=== PATIENT | female | born 1950 | race Caucasian/White ===

== ENCOUNTER 2017-04-01 05:11 | Inpatient (IN) | payer OTHER, MEDICARE ==
[2017-04-01] MEDS ORDERED: GABAPENTIN 300 MG CAP PO ONE ×2 (06:29→06:58)
[2017-04-01] MEDS ORDERED: ceFAZolin 2 GM/SWFI 2 GM/20 ML SYR IVP ONE (06:29)
[2017-04-01] MEDS ORDERED: ACETAMINOPHEN 500 MG TAB PO ONE (06:29)
--- NOTE | 2017-04-01 06:31 | PDHPUP ---
History & Physical Update H&P update statement: This history and physical update is based on an assessment of the patient which was completed after admission or registration (within 24 hours), but prior to the surgery/procedure. H&P update: H&P reviewed & patient examined, no change in patient's condition since H&P completed
[2017-04-01] MEDS ORDERED: LR 1,000 ML IV ONE (06:48)
--- NOTE | 2017-04-01 07:09 | PDANEPAE ---
ANE History of Present Illness Patient presents for back fusion ANE Past Medical History - Cardiovascular History Hx Hypertension: Yes Hx Arrhythmias: Yes Hx Chest Pain: No Hx Coronary Artery / Peripheral Vascular Disease: No Hx CHF / Valvular Disease: No Hx Palpitations: No Cardiovascular History Comment: chronic a-Fib, - Pulmonary History Hx COPD: No Hx Asthma/Reactive Airway Disease: No Hx Recent Upper Respiratory Infection: No Hx Oxygen in Use at Home: No Hx Sleep Apnea: Yes Sleep Apnea Screening Result - Last Documented: Positive Pulmonary History Comment: asthma. Hx of sleep apnea - Neurologic History Hx Cerebrovascular Accident: No Hx Seizures: No Hx Dementia: No - Endocrine History Hx Diabetes: No - Renal History Hx Renal Disorders: No - Liver History Hx Hepatic Disorders: No - Neurological & Psychiatric Hx Hx Neurological and Psychiatric Disorders: Yes Neurological / Psychiatric History Comment: anxiety,depression - Cancer History Hx Cancer: No - Congenital Disorder History Hx Congenital Disorders: No - GI History Hx Gastrointestinal Disorders: Yes Gastrointestinal History Comment: Gerd. gall baldder disease w Sx - Other Health History Other Health History: osteo arthritis,. fibro-myalgia. 1995 spinal injury. chronic sinusitis - Chronic Pain History Chronic Pain: Yes (THORACIC SPINE,FIBROMYALGIA RELATED PAIN WELL) - Surgical History Prior Surgeries: CHANG shoulder replacement,. B knee,. B hammertoes ANE Review of Systems Review of Systems: - Exercise capacity METS (RN): 2 METS ANE Patient History - Allergies Allergies/Adverse Reactions: adhesive tape Allergy (Verified 03/18/17 14:30) erythromycin base Allergy (Verified 03/18/17 14:32) Vomiting Iodinated Contrast- Oral and IV Dye Allergy (Verified 03/18/17 15:57) Swelling/neck,face,throat propoxyphene [From Darvocet-N] Allergy (Verified 03/18/17 15:55) shellfish derived Allergy (Verified 03/18/17 14:32) Sulfa (Sulfonamide Antibiotics) Allergy (Verified 03/18/17 14:32) Hives vicryl Allergy (Uncoded 03/18/17 14:32) vitamin b12 Allergy (Uncoded 03/18/17 14:32) - Home Medications Home medications: home medication list seen and reviewed Home Medications: Acetaminophen [Tylenol ES 500 mg (*)] 1,000 mg PO Q6HRS PRN 03/18/17 [Last Taken 03/30/17 20:00] Acyclovir [Zovirax 400 mg (*)] 800 mg PO BID PRN 03/18/17 [Last Taken 3 Months Ago ~12/30/16] Albuterol [Proventil Inhaler HFA (*)] 2 puffs IH Q4H PRN 03/18/17 [Last Taken 1 Week Ago ~03/25/17] Albuterol [Proventil Neb] 3 ml IH QID PRN 03/18/17 [Last Taken 1 Week Ago ~03/25] Cholecalciferol Vit D3 [Vitamin D3 (*)] 4,000 units PO DAILY 03/18/17 [Last Taken 3 Months Ago ~12/30/16] DULoxetine [Cymbalta 60 MG (*)] 60 mg PO DAILY 03/18/17 [Last Taken 04/01/17 04: 00] Gabapentin [Neurontin 300 MG (*)] 300 mg PO DAILY 03/18/17 [Last Taken 04/01/17 04:00] Gabapentin [Neurontin 300 MG (*)] 600 mg PO HS 03/18/17 [Last Taken 03/31/17 20: 00] Herbals/Supplements -Info Only 1 ea PO DAILY 03/18/17 [Last Taken 1 Week Ago ~] Hydrocodone/Acetaminophen [[place] 7.5-325 Tablet] 1 each PO Q6HRS PRN 03/18/17 [ Last Taken 03/31/17 20:00] Losartan Potassium [Cozaar 50 mg (*)] 50 mg PO DAILY 03/18/17 [Last Taken 06:00] Montelukast Sodium [Singulair 10 mg (*)] 10 mg PO HS 03/18/17 [Last Taken 20:00] Pantoprazole Sodium [Protonix 40mg (*)] 40 mg PO BID 03/18/17 [Last Taken 04:00] Spironolactone [Aldactone 25 MG (*)] 50 mg PO DAILY 03/18/17 [Last Taken 08:00] busPIRone [Buspar (*)] 7.5 mg PO BID 03/18/17 [Last Taken 04/01/17 04:00] rOPINIRole HCL [Requip 2mg (*)] 4 mg PO TID 03/18/17 [Last Taken 04/01/17 04:00] Doxycycline Calcium BID 03/31/17 [Last Taken 04/01/17 04:00] Mupirocin 2% BID 03/31/17 [Last Taken 04/01/17 04:00] - NPO status NPO Status: no food or drink >8 hours NPO Since - Liquids (Date): 04/01/17 NPO Since - Liquids (Time): 04:00 NPO Since - Solids (Date): 03/31/17 NPO Since - Solids (Time): 23:30 - Anes Hx Anes Hx: slow to awaken from anesthesia - Smoking Hx Smoking Status: Never smoked - Family Anes Hx Family Hx Anesthesia Complications: none ANE Labs/Vital Signs - Vital Signs Blood Pressure: 129/69 Heart Rate: 79 Respiratory Rate: 15 O2 Sat (%): 96 Height: 160.02 cm Weight: 96.615 kg ANE Physical Exam - Airway Neck exam: FROM Mallampati Score: Class 2 - Pulmonary Pulmonary: no respiratory distress - Cardiovascular Cardiovascular: regular rate and rhythym - ASA Status ASA Status: III ANE Anesthesia Plan Anesthesia Plan: general endotracheal anesthesia Lines/Monitors: arterial line, central line (RBA discussed)
[2017-04-01] MEDS ORDERED: diphenhydrAMINE 25 MG CAP PO PRN (07:47)
[2017-04-01] MEDS ORDERED: MAGNESIUM HYDROXIDE 30 ML UDCUP PO PRN (07:47)
[2017-04-01] MEDS ORDERED: LACTULOSE 20 GM/30 ML UDCUP PO PRN (07:47)
[2017-04-01] MEDS ORDERED: BISACODYL 10 MG SUPP PR PRN (07:47)
[2017-04-01] MEDS ORDERED: TRANEXAMIC ACID 1,000 MG in NS 100 ML IV ONE ×2 (09:30→13:30)
[2017-04-01 09:59] LABS: % IMMATURE GRANULYOCYTES 0.3 % (0.0-1.1); ABSOLUTE IMMATURE GRANULOCYTES 0.02 10^3/uL (0.00-0.10); ADD DIFF? NO; ADD MORPH? NO; ADD SCAN? NO; ATYPICAL LYMPHOCYTE FLAG 20 (0-99); FRAGMENT RBC FLAG 0 (0-99); HEMATOCRIT 31.5 % (38.0-47.0); HEMOGLOBIN 10.1 g/dL (12.6-16.3); LEFT SHIFT FLG 0 (0-99); LIPEMIA HEMOLYSIS FLAG 80 (0-99); MEAN CELL HEMOGLOBIN 25.6 pg (27.9-34.1); MEAN CELL HEMOGLOBIN CONCENTR. 32.1 g/dL (32.4-36.7); MEAN CELL VOLUME 79.7 fL (81.5-99.8); MEAN PLATELET VOLUME 9.2 fL (8.7-11.7); PLATELET CLUMPS FLAG 20 (0-99); PLATELET COUNT 279 10^3/uL (150-400); RED BLOOD CELL COUNT 3.95 10^6/uL (4.18-5.33)
[2017-04-01 10:20] LABS: APTT 29.5 SEC (23.0-38.0); INR 1.17 (0.83-1.16); PROTIME(PATIENT) 14.9 SEC (12.0-15.0)
[2017-04-01] MEDS ORDERED: CITRATE DEXTROSE SOLN 500 ML BAG ONE ×2 (10:25→11:27)
[2017-04-01] MEDS ORDERED: THROMBIN (BOVINE) 20,000 UNIT VIAL TP ONE ×2 (10:26→11:56)
[2017-04-01] MEDS ORDERED: CHLORHEXIDINE GLUC HIBICLENS 118 ML BTL TP ONE (10:26)
[2017-04-01] MEDS ORDERED: BUPIVACAINE 0.25% 30 ML SDV ONE (10:26)
[2017-04-01] MEDS ORDERED: BACITRACIN 50,000 UNITS/10 ML SYR IRR ONE ×4 (10:27→14:27)
[2017-04-01] MEDS ORDERED: fentaNYL 100 MCG/2 ML INJ ONE (11:12)
[2017-04-01] MEDS ORDERED: fentaNYL 100 MCG/2 ML INJ IT ONE (11:15)
[2017-04-01] MEDS ORDERED: morphINE PF 1 MG/2 ML AMP IT ONE (11:15)
[2017-04-01 11:24] LABS: % IMMATURE GRANULYOCYTES 0.6 % (0.0-1.1); ABSOLUTE IMMATURE GRANULOCYTES 0.08 10^3/uL (0.00-0.10); ADD DIFF? NO; ADD MORPH? NO; ADD SCAN? NO; ATYPICAL LYMPHOCYTE FLAG 0 (0-99); FRAGMENT RBC FLAG 0 (0-99); HEMATOCRIT 30.4 % (38.0-47.0); HEMOGLOBIN 9.7 g/dL (12.6-16.3); LEFT SHIFT FLG 10 (0-99); LIPEMIA HEMOLYSIS FLAG 80 (0-99); MEAN CELL HEMOGLOBIN 25.5 pg (27.9-34.1); MEAN CELL HEMOGLOBIN CONCENTR. 31.9 g/dL (32.4-36.7); MEAN CELL VOLUME 79.8 fL (81.5-99.8); MEAN PLATELET VOLUME 9.4 fL (8.7-11.7); PLATELET CLUMPS FLAG 0 (0-99); PLATELET COUNT 270 10^3/uL (150-400); RED BLOOD CELL COUNT 3.81 10^6/uL (4.18-5.33); RED CELL DISTRIBUTION WIDTH 15.1 % (11.5-15.2)
[2017-04-01 11:35] LABS: INR 1.2 (0.83-1.16); PROTIME(PATIENT) 15.2 SEC (12.0-15.0)
[2017-04-01] MEDS ORDERED: ALBUTEROL 200 PUFFS/18 GM MDI IH PRN (11:40)
[2017-04-01] MEDS ORDERED: ALBUTEROL 3 ML DEYVIAL IH PRN (11:40)
[2017-04-01] MEDS ORDERED: ACYCLOVIR 400 MG TAB PO PRN (11:40)
[2017-04-01 13:32] LABS: % IMMATURE GRANULYOCYTES 0.9 % (0.0-1.1); ABSOLUTE IMMATURE GRANULOCYTES 0.13 10^3/uL (0.00-0.10); ABSOLUTE NRBC COUNT 0.02 10^3/uL (0-0.01); ADD DIFF? NO; ADD MORPH? NO; ADD SCAN? NO; ATYPICAL LYMPHOCYTE FLAG 0 (0-99); FRAGMENT RBC FLAG 0 (0-99); HEMATOCRIT 30.5 % (38.0-47.0); LEFT SHIFT FLG 30 (0-99); LIPEMIA HEMOLYSIS FLAG 80 (0-99); MEAN CELL HEMOGLOBIN 27.1 pg (27.9-34.1); MEAN CELL HEMOGLOBIN CONCENTR. 32.8 g/dL (32.4-36.7); MEAN CELL VOLUME 82.7 fL (81.5-99.8); MEAN PLATELET VOLUME 9.7 fL (8.7-11.7); NRBC-AUTO% 0.1 % (0.0-0.2); PLATELET CLUMPS FLAG 10 (0-99); PLATELET COUNT 179 10^3/uL (150-400); RED BLOOD CELL COUNT 3.69 10^6/uL (4.18-5.33)
[2017-04-01 13:40] LABS: APTT 30.3 SEC (23.0-38.0); INR 1.27 (0.83-1.16); PROTIME(PATIENT) 15.9 SEC (12.0-15.0)
[2017-04-01 14:58] LABS: ABSOLUTE IMMATURE GRANULOCYTES 0.12 10^3/uL (0.00-0.10); ADD DIFF? NO; ADD MORPH? NO; ADD SCAN? NO; ATYPICAL LYMPHOCYTE FLAG 0 (0-99); FRAGMENT RBC FLAG 10 (0-99); HEMATOCRIT 29.9 % (38.0-47.0); HEMOGLOBIN 9.9 g/dL (12.6-16.3); LEFT SHIFT FLG 30 (0-99); LIPEMIA HEMOLYSIS FLAG 80 (0-99); MEAN CELL HEMOGLOBIN 27.7 pg (27.9-34.1); MEAN CELL HEMOGLOBIN CONCENTR. 33.1 g/dL (32.4-36.7); MEAN CELL VOLUME 83.5 fL (81.5-99.8); MEAN PLATELET VOLUME 9.6 fL (8.7-11.7); PLATELET CLUMPS FLAG 0 (0-99); PLATELET COUNT 162 10^3/uL (150-400); RED BLOOD CELL COUNT 3.58 10^6/uL (4.18-5.33)
[2017-04-01 15:15] LABS: INR 1.27 (0.83-1.16); PROTIME(PATIENT) 15.9 SEC (12.0-15.0)
[2017-04-01 16:41] LABS: % IMMATURE GRANULYOCYTES 1.5 % (0.0-1.1); ABSOLUTE IMMATURE GRANULOCYTES 0.24 10^3/uL (0.00-0.10); ADD DIFF? NO; ADD MORPH? NO; ADD SCAN? NO; ATYPICAL LYMPHOCYTE FLAG 0 (0-99); FRAGMENT RBC FLAG 0 (0-99); HEMATOCRIT 33.1 % (38.0-47.0); HEMOGLOBIN 11.4 g/dL (12.6-16.3); LEFT SHIFT FLG 50 (0-99); LIPEMIA HEMOLYSIS FLAG 90 (0-99); MEAN CELL HEMOGLOBIN 28.9 pg (27.9-34.1); MEAN CELL HEMOGLOBIN CONCENTR. 34.4 g/dL (32.4-36.7); MEAN PLATELET VOLUME 9.6 fL (8.7-11.7); PLATELET CLUMPS FLAG 10 (0-99); PLATELET COUNT 103 10^3/uL (150-400); RED BLOOD CELL COUNT 3.94 10^6/uL (4.18-5.33); RED CELL DISTRIBUTION WIDTH 15.7 % (11.5-15.2)
[2017-04-01 17:15] LABS: INR 1.44 (0.83-1.16); PROTIME(PATIENT) 17.5 SEC (12.0-15.0)
[2017-04-01 17:16] LABS: APTT 34.4 SEC (23.0-38.0)
[2017-04-01] MEDS: GABAPENTIN 300 MG CAP PO SCH ×2 (17:27→20:40)
[2017-04-01] MEDS: POLYETHYLENE GLYCOL 3350 17 GM PKT PO SCH ×3 (17:27→20:41)
[2017-04-01] MEDS: FAMOTIDINE 20 MG TAB PO SCH ×2 (17:27→20:41)
[2017-04-01] MEDS: ACETAMINOPHEN 500 MG TAB PO SCH ×2 (17:27→20:37)
[2017-04-01] MEDS: SENNOSIDES/DOCUSATE SODIUM TAB PO SCH ×2 (17:27→20:41)
--- NOTE | 2017-04-01 17:58 | POSTOPPROG ---
Post Op Note Date of Operation: 04/01/17 Surgeon: Ngoc Villalobos Utility Sales And Service Manager: Ngoc Villalobos BURLESQUE DANCER Anesthesia: GET(General Endotracheal) Pre-op Diagnosis: Lumbar stenosis, scolisos Procedure: T10-S1 Fusions with TLIF at T12-1, L1-2, L3-4, L4-5 Inf/Abcess present in the surg proc area at time of surgery?: No Depth: Deep Incisional (Fascial) EBL: Greater than 1000 Total fluids administered: see anesthesia Complications: Durotomy Drains: Kennedy Langford Date of Surgery: 04/01/17 Post Op Day: 0 Assessment/Plan: Assessment: 66 yr old s/p T10-S1 Fusion with TLIF at T12-L1, L1-2, L3-4, L4-5, intraop durotomy Plan: -Patient will go to ICU -Pain management, patient received intrathecal narcotics which were administered in OR -PT/OT -Case management consulted -Wear brace when out of bed, patient has brace already -Keep head of bed flat until Wednesday 04/04 at 0800 -DO NOT place BAKARI to suction -CBC in am, 3400ml EBL intra-op, see anesthesia for products/fluids administered -Will give one unit Cryo now -Call neurosurgery with any questions/concerns Subjective: Patient waking up in ICU, extubated Objective: Waking up in ICU, extubated, following commands-still very sleepy Moves extremities x4 Dressing CDI BAKARI draining, not to suction Appropriate Neuro Check Frequency Ordered: Yes
--- NOTE | 2017-04-01 18:14 | POSTANESTH ---
Post Anesthetic Evaluation Cardiovascular Status: Similar to Pre-Op Cond Respiratory Status: Similar to Pre-op Cond. Level of Consciousness/Mental Status: Mildly Sleepy, Arousable Pain Control: Adequate, Prn Tx Ordered Nausea/Vomiting Control: Adequate, Prn Tx Ordered Complications Possibly Related to Anesthesia: None Noted
[2017-04-01] MEDS ORDERED: NALOXONE HCL 0.4 MG/ML INJ IVP PRN (20:30)
[2017-04-01] MEDS ORDERED: morphINE PCA 30 MG/30 ML PCA IV PRN (20:30)
[2017-04-01] MEDS: busPIRone 5 MG TAB PO SCH (20:35)
[2017-04-01] MEDS: CEFUROXIME 1,500 MG in NS 50 ML IV SCH (20:37)
[2017-04-01] MEDS: MONTELUKAST SODIUM 10 MG TAB PO SCH (20:41)
[2017-04-01] MEDS: PANTOPRAZOLE SODIUM 40 MG TAB PO SCH (20:41)
[2017-04-01] MEDS: MUPIROCIN 2% 22 GM OINT TP SCH (21:16)
[2017-04-02] MEDS: CEFUROXIME 1,500 MG in NS 50 ML IV SCH (03:13)
[2017-04-02 05:00] LABS: % IMMATURE GRANULYOCYTES 0.6 % (0.0-1.1); ABSOLUTE IMMATURE GRANULOCYTES 0.08 10^3/uL (0.00-0.10); ADD DIFF? NO; ADD MORPH? NO; ADD SCAN? NO; ATYPICAL LYMPHOCYTE FLAG 0 (0-99); FRAGMENT RBC FLAG 0 (0-99); HEMATOCRIT 30.8 % (38.0-47.0); LEFT SHIFT FLG 20 (0-99); LIPEMIA HEMOLYSIS FLAG 80 (0-99); MEAN CELL HEMOGLOBIN 27.8 pg (27.9-34.1); MEAN CELL HEMOGLOBIN CONCENTR. 32.5 g/dL (32.4-36.7); MEAN CELL VOLUME 85.6 fL (81.5-99.8); MEAN PLATELET VOLUME 10.7 fL (8.7-11.7); PLATELET CLUMPS FLAG 10 (0-99); PLATELET COUNT 64 10^3/uL (150-400); RED CELL DISTRIBUTION WIDTH 15.9 % (11.5-15.2)
[2017-04-02 05:03] LABS: ANION GAP 9 mEq/L (8-16); CALCIUM 6.5 mg/dL (8.5-10.4); CARBON DIOXIDE 18 mEq/l (22-31); CHLORIDE 115 mEq/L (97-110); CREATININE 0.6 mg/dL (0.6-1.0); GLOMERULAR FILTRATION RATE > 60; GLUCOSE 139 mg/dL (70-100); POTASSIUM 4.7 mEq/L (3.5-5.2); SODIUM 142 mEq/L (134-144)
[2017-04-02] MEDS: ACETAMINOPHEN 500 MG TAB PO SCH ×3 (06:40→20:32)
[2017-04-02] MEDS: GABAPENTIN 300 MG CAP PO SCH ×4 (06:40→21:15)
[2017-04-02] MEDS: oxyCODONE IR 5 MG TAB PO PRN ×4 (06:41→23:27)
[2017-04-02] MEDS: METHOCARBAMOL 750 MG TAB PO PRN (07:52)
--- NOTE | 2017-04-02 07:52 | NEUSURGPN ---
Assessment/Plan: 66 yr old s/p T10-S1 Fusion with TLIF at T12-L1, L1-2, L3-4, L4-5, intraop durotomy POD1 Plan: -Continue ICU level of care -Pain management, patient received intrathecal narcotics which were administered in OR. Started on HEALTH ASSOCIATE over night. Will wean today -PT/OT -Case management consulted -Wear brace when out of bed, patient has brace already -Keep head of bed flat until Wednesday 04/04 at 0800 -DO NOT place BAKARI to suction -H:H 10:30.8 - Will added in Valium for muscle relaxers -Call neurosurgery with any questions/concerns Subjective: low back pain and stiffness. Denies any new leg pain, numbness, tingling or weakness Objective: NAD A&Ox3 MAEx4 09/24 and equal in BUE and BLE. Incision c/d/i Catheter Insertion Date: 04/01/17 - Physician Discussed Patient with : Torres Neurosurgery Physical Exam - Vitals, I&O, Labs I and O 04/01/17 04/02/17 04/03/17 05:59 05:59 05:59 Intake Total 342 Output Total 935 Balance -593 Weight 96.615 kg 96.615 kg Intake: IV Intake (ml) 342 Output: Urine (ml) 875 Catheter 875 BAKARI Drain Output (ml) 60 Back 60 Vital Signs Temp Pulse Resp BP Pulse Ox 36.3 C 95 18 122/70 H 99 04/01/17 20:00 04/02/17 06:00 04/02/17 06:00 04/02/17 06:00 04/02/17 06:00 Laboratory Results 04/02/17 04:40 04/02/17 04:40 ICD10 Worksheet Patient Problems: Problems Problem Status Onset Lumbar stenosis Acute - ICD10 Problem Qualifiers (1) Lumbar stenosis
--- NOTE | 2017-04-02 09:58 | ASMTCASEMG ---
Living Arrangements What is your living Answers: With Spouse arrangement? Who do you live with? Type Of Residence What kind of residence do Answers: House you live in? Discharge Plan Comments Coordination Status Comments Notes: Pt is a 66 y/o female admitted w/ hip and groin pain. Pt is post op day 1. PT, OT, SPL have been ordered and awaiting recommendations. Needs are TBD at this time. CM to follow. Date Signed: 04/02/2017 09:58 AM Electronically Signed By:HEMA Hernandez
[2017-04-02] MEDS: DULoxetine 60 MG CAP PO SCH (10:29)
[2017-04-02] MEDS: SENNOSIDES/DOCUSATE SODIUM TAB PO SCH ×2 (10:29→21:35)
[2017-04-02] MEDS: LOSARTAN POTASSIUM 50 MG TAB PO SCH (10:29)
[2017-04-02] MEDS: SPIRONOLACTONE 25 MG TAB PO SCH (10:31)
[2017-04-02] MEDS: FAMOTIDINE 20 MG TAB PO SCH ×2 (10:32→20:31)
[2017-04-02] MEDS: busPIRone 5 MG TAB PO SCH ×2 (10:32→20:31)
[2017-04-02] MEDS: PANTOPRAZOLE SODIUM 40 MG TAB PO SCH ×2 (10:32→20:31)
[2017-04-02] MEDS: CHOLECALCIFEROL VIT D3 1,000 UNITS TAB PO SCH (10:33)
[2017-04-02] MEDS: MUPIROCIN 2% 22 GM OINT TP SCH ×2 (11:08→21:14)
[2017-04-02] MEDS: POLYETHYLENE GLYCOL 3350 17 GM PKT PO SCH ×3 (11:09→21:35)
[2017-04-02] MEDS: MONTELUKAST SODIUM 10 MG TAB PO SCH (20:32)
[2017-04-02] MEDS ORDERED: CEPACOL LOZENGE PO PRN (21:00)
[2017-04-02] MEDS: DIAZEPAM 5 MG TAB PO PRN (21:35)
[2017-04-03] MEDS: ONDANSETRON 4 MG/2 ML VIAL IVP PRN ×2 (00:30→20:34)
[2017-04-03] MEDS: oxyCODONE IR 5 MG TAB PO PRN ×4 (04:32→20:37)
[2017-04-03] MEDS: GABAPENTIN 300 MG CAP PO SCH ×3 (04:32→20:35)
[2017-04-03] MEDS: ACETAMINOPHEN 500 MG TAB PO SCH ×3 (04:33→20:36)
[2017-04-03] MEDS: DIAZEPAM 5 MG TAB PO PRN ×3 (06:01→18:29)
--- NOTE | 2017-04-03 08:30 | NEUSURGPN ---
Assessment/Plan: 66 yr old s/p T10-S1 Fusion with TLIF at T12-L1, L1-2, L3-4, L4-5, intraop durotomy POD2 Plan: -Continue ICU level of care -Pain management, improved with addition of valium -PT/OT -Case management consulted -Wear brace when out of bed, patient has brace already -Okay to raise HOB 10 degrees and hour today -DO NOT place BAKARI to suction -Will recheck CBC today -Call neurosurgery with any questions/concerns Subjective: low back pain, denies any leg pain, numbness, tingling or weakness Objective: NAD A&Ox3 MAEx4 5/5 and equal in BUE and BLE. Incision c/d/i, flat Catheter Insertion Date: 04/01/17 - Physician Discussed Patient with : Torres Neurosurgery Physical Exam - Vitals, I&O, Labs I and O 04/02/17 04/03/17 04/04/17 05:59 05:59 05:59 Intake Total 342 1550 Output Total 935 1350 Balance -593 200 Weight 96.615 kg Intake: Oral (ml) 300 IV Intake (ml) 342 1250 Output: Urine (ml) 875 1250 Catheter 875 1250 BAKARI Drain Output (ml) 60 100 Back 60 100 Vital Signs Temp Pulse Resp BP Pulse Ox 36.6 C 85 12 108/52 L 98 04/02/17 20:00 04/03/17 06:00 04/03/17 06:00 04/03/17 06:00 04/03/17 06:00 Laboratory Results 04/02/17 04:40 04/02/17 04:40 ICD10 Worksheet Patient Problems: Problems Problem Status Onset Lumbar stenosis Acute - ICD10 Problem Qualifiers (1) Lumbar stenosis
[2017-04-03 09:15] LABS: HEMOGLOBIN 8.3 g/dL (12.6-16.3); MEAN CELL HEMOGLOBIN 28.2 pg (27.9-34.1); MEAN CELL HEMOGLOBIN CONCENTR. 33.2 g/dL (32.4-36.7); RED BLOOD CELL COUNT 2.94 10^6/uL (4.18-5.33); RED CELL DISTRIBUTION WIDTH 16.5 % (11.5-15.2)
[2017-04-03] MEDS: SENNOSIDES/DOCUSATE SODIUM TAB PO SCH ×2 (09:37→20:35)
[2017-04-03] MEDS: PANTOPRAZOLE SODIUM 40 MG TAB PO SCH ×2 (09:38→20:36)
[2017-04-03] MEDS: FAMOTIDINE 20 MG TAB PO SCH ×2 (09:38→20:34)
[2017-04-03] MEDS: busPIRone 5 MG TAB PO SCH ×2 (09:38→20:34)
[2017-04-03] MEDS: DULoxetine 60 MG CAP PO SCH (09:38)
[2017-04-03] MEDS: MUPIROCIN 2% 22 GM OINT TP SCH ×2 (09:40→23:30)
[2017-04-03] MEDS: CHOLECALCIFEROL VIT D3 1,000 UNITS TAB PO SCH (09:40)
[2017-04-03] MEDS: SPIRONOLACTONE 25 MG TAB PO SCH ×2 (09:41→15:13)
[2017-04-03] MEDS: POLYETHYLENE GLYCOL 3350 17 GM PKT PO SCH ×3 (09:41→20:36)
--- NOTE | 2017-04-03 15:10 | PDINTPN ---
Business Planning Analyst Progress Note Assessment/Plan: Assessment: S/P T10-S1 Fusion with durotomy: Off of bed rest/lying flat as of this morning. C/O severe post-op pain. Asthma: Mild, no symptoms currently CAM: ? severity. Not on treatment. Anemia: H/H down a bit today. Plan: Increase activity as tolerated as per NS. PO narcotics/Valium for pain. Albuterol PRN. Observe for signs of CAM. Follow H/H. 04/03/17 15:01 04/03/17 15:11 Subjective: C/O pain at surgical site, thirst. Denies dyspnea, CP, cough. Objective: Vital Signs Temp Pulse Resp BP Pulse Ox 37 C 94 13 125/72 H 95 04/03/17 12:00 04/03/17 12:00 04/03/17 12:00 04/03/17 12:00 04/03/17 12:00 Laboratory Results 04/03/17 08:50 04/02/17 04:40 04/02/17 04/03/17 04/04/17 05:59 05:59 05:59 Intake Total 342 1550 Output Total 935 1350 Balance -593 200 PT 17.5 SEC (12.0-15.0) H 04/01/17 16:25 INR 1.44 (0.83-1.16) H 04/01/17 16:25 Physical Exam - Physical Exam General Appearance: alert, moderate distress (due to pain) EENT: normal ENT inspection Neck: normal inspection Respiratory: lungs clear, normal breath sounds, No respiratory distress Cardiac/Chest: regular rate, rhythm, No edema Abdomen: non-tender, soft, No normal bowel sounds (diminished) Skin: normal color, warm/dry Extremities: normal inspection Neuro/Psych: alert, normal mood/affect, oriented x 3 ICD10 Worksheet Patient Problems: Problems Problem Status Onset Lumbar stenosis Acute
[2017-04-03] MEDS: LOSARTAN POTASSIUM 50 MG TAB PO SCH (15:12)
--- NOTE | 2017-04-03 15:32 | GCON ---
[f rep st] CONSULTATION PULMONARY/CRITICAL CARE CONSULTATION DATE OF CONSULTATION: 04/02/2017 REFERRING PHYSICIAN: Dragan Macdonald MD REASON FOR CONSULTATION: Evaluation and management of asthma, sleep apnea, and pain status post lumb ar surgery. HISTORY: The patient is a 66-year-old woman with a history of chronic low back pain who has failed c onservative treatment and underwent a T10 to S1 fusion with TLIF at T11 through L5. There was intrao perative durotomy. Since surgery yesterday, she has had significant back pain and has to lie flat. She states that the pain is centered around the surgical site and is quite severe. She is a bit grog gy from pain medications and Valium. She denies nausea. PAST MEDICAL HISTORY: 1. Asthma. She states that this is fairly mild and is managed primarily with p.r.n. albuterol as we ll as montelukast. 2. Sleep apnea. The patient states that this was diagnosed about 3 years ago based on a sleep study . She has not been on treatment and is a bit vague as to whether or not treatment was recommended or the severity of the sleep apnea. 3. Hypertension. MEDICATIONS: Include ropinirole, spironolactone, pantoprazole, montelukast, losartan, gabapentin, du loxetine, buspirone, albuterol, acyclovir, [place], and doxycycline. ALLERGIES: Adhesive tape and erythromycin. SOCIAL HISTORY: She is , and her is in the room. She has never smoked. FAMILY HISTORY: Unremarkable. REVIEW OF SYSTEMS: A 10-point review of systems adds nothing to the History of Present Illness. PHYSICAL EXAMINATION: GENERAL: The patient is awake, alert, and in mild distress due to pain. PASQUALE L SIGNS: Her blood pressure is 117/53 with a heart rate of 100. Her oxygen saturations are 97% on 3 L. Respiratory rate is 17. She is afebrile. HEENT: Normocephalic and atraumatic. No icterus. N TERRI: No adenopathy. Trachea is midline. CHEST: Clear to auscultation. CARDIAC: Regular rate and rhythm without murmur. ABDOMEN: Soft, nontender. Bowel sounds are present. EXTREMITIES: No club yadira, cyanosis, or edema. NEURO: The patient is awake but somewhat somnolent due to narcotics/sedat french. She has no apparent gross focal motor or sensory deficits. LABORATORY: Hemoglobin is 10.0, stable from 10.1 on the morning of admission. White blood count is 13.6. Chemistry group is remarkable for a carbon dioxide level of 18 with chloride of 115. INR is 1 .4. ASSESSMENT: 1. Status post lumbar spine surgery. The patient is having significant pain, which is partially con trolled with narcotics and Valium. She has a durotomy tear and has to lie flat for at least the next 24 hours. 2. Asthma. This is apparently mild, and the patient is not currently having symptoms of an asthma e xacerbation. 3. Sleep apnea. The severity of this is unknown, and she is not on treatment at home. She is, wyman meggan, at risk for complications related from sleep apnea combined with respiratory depressants such as pain medications and benzodiazepines used here in the hospital. 4. Anemia. This was present at the time of admission, and her hemoglobin is essentially unchanged s georgi surgery. RECOMMENDATIONS: 1. Continue ICU monitoring for a history of sleep apnea with pain medications/sedatives. 2. Use albuterol p.r.n. asthma. 3. Pain control as per Neurosurgery. /[id number]/MODL
[2017-04-03] MEDS: METHOCARBAMOL 750 MG TAB PO PRN ×2 (17:53→23:30)
[2017-04-03] MEDS: MONTELUKAST SODIUM 10 MG TAB PO SCH (20:35)
[2017-04-04] MEDS: DIAZEPAM 5 MG TAB PO PRN ×2 (00:22→20:52)
[2017-04-04] MEDS: ONDANSETRON DISINTEGRATING 4 MG TAB PO PRN ×2 (00:22→09:10)
[2017-04-04] MEDS: oxyCODONE IR 5 MG TAB PO PRN ×6 (02:25→23:06)
[2017-04-04 05:33] LABS: HEMATOCRIT 22.4 % (38.0-47.0); HEMOGLOBIN 7.5 g/dL (12.6-16.3); MEAN CELL HEMOGLOBIN 28.3 pg (27.9-34.1); MEAN CELL HEMOGLOBIN CONCENTR. 33.5 g/dL (32.4-36.7); MEAN CELL VOLUME 84.5 fL (81.5-99.8); RED BLOOD CELL COUNT 2.65 10^6/uL (4.18-5.33); RED CELL DISTRIBUTION WIDTH 16.5 % (11.5-15.2)
[2017-04-04] MEDS: ACETAMINOPHEN 500 MG TAB PO SCH ×3 (05:48→20:46)
[2017-04-04] MEDS: METHOCARBAMOL 750 MG TAB PO PRN ×3 (05:49→14:48)
[2017-04-04 05:56] LABS: ANION GAP 5 mEq/L (8-16); CALCIUM 7.9 mg/dL (8.5-10.4); CARBON DIOXIDE 32 mEq/l (22-31); CHLORIDE 99 mEq/L (97-110); CREATININE 0.5 mg/dL (0.6-1.0); GLOMERULAR FILTRATION RATE > 60; GLUCOSE 120 mg/dL (70-100); SODIUM 136 mEq/L (134-144)
--- NOTE | 2017-04-04 07:18 | NEUSURGPN ---
Date of Surgery: 04/01/17 Post Op Day: 3 Assessment/Plan: Assessment: 66 yr old s/p T10-S1 Fusion with TLIF at T12-L1, L1-2, L3-4, L4-5, intraop durotomy Plan: -PT/OT -Case management to eval dispo options when able -Wear brace when out of bed -Intraop durotomy, patient had hob flat until yesterday, tolerating hob elevated and ambulation, denies headache -DO NOT place BAKARI to suction -PIV x2 infiltrated, unable to obtain access per RN. Will get PICC placed this am. -H/H 22.4/7.5, will transfuse 2 units PRBC's once PICC placed -May transfer to floor -Call neurosurgery with any questions/concerns Subjective: Legs do not feel as heavy this am Objective: A&Ox3 MAEx4 5/ and equal in BUE and BLE Incision c/d/i, Neuro Check Frequency: per routine Urinary Catheter in Place: No Catheter Insertion Date: 04/01/17 - Physician Discussed Patient with : Torres Neurosurgery Physical Exam - Vitals, I&O, Labs I and O 04/03/17 04/04/17 04/05/17 05:59 05:59 05:59 Intake Total 1550 350 Output Total 1350 1315 Balance 200 -965 Intake: Oral (ml) 300 350 IV Intake (ml) 1250 Output: Urine (ml) 1250 1100 Catheter 1250 1100 BAKARI Drain Output (ml) 100 215 Back 100 215 Other: Number of Voids Toilet 1 Vital Signs Temp Pulse Resp BP Pulse Ox 36.8 C 89 20 123/63 H 95 04/04/17 04:00 04/04/17 06:00 04/04/17 06:00 04/04/17 06:00 04/04/17 06:00 Laboratory Results 04/04/17 05:25 04/04/17 05:25 ICD10 Worksheet Patient Problems: Problems Problem Status Onset Lumbar stenosis Acute
[2017-04-04] MEDS ORDERED: ALTEPLASE 2 MG VIAL IVP PRN (07:49)
[2017-04-04] MEDS: LOSARTAN POTASSIUM 50 MG TAB PO SCH (09:20)
[2017-04-04] MEDS: DULoxetine 60 MG CAP PO SCH (09:27)
[2017-04-04] MEDS: CHOLECALCIFEROL VIT D3 1,000 UNITS TAB PO SCH (09:27)
[2017-04-04] MEDS: GABAPENTIN 300 MG CAP PO SCH ×2 (09:27→20:10)
[2017-04-04] MEDS: SPIRONOLACTONE 25 MG TAB PO SCH (09:27)
[2017-04-04] MEDS: busPIRone 5 MG TAB PO SCH ×2 (09:28→20:46)
[2017-04-04] MEDS: SENNOSIDES/DOCUSATE SODIUM TAB PO SCH ×2 (09:29→20:13)
[2017-04-04] MEDS: PANTOPRAZOLE SODIUM 40 MG TAB PO SCH ×2 (09:29→20:12)
[2017-04-04] MEDS: POLYETHYLENE GLYCOL 3350 17 GM PKT PO SCH ×3 (09:37→20:13)
--- NOTE | 2017-04-04 09:37 | PDINTPN ---
Regulatory Affairs Assistant Progress Note Assessment/Plan: Assessment: * S/P T10-S1 Fusion with durotomy: Off of bed rest/lying flat as of this morning. C/O severe post-op pain. * Asthma: Mild, no symptoms currently * CAM: ? severity. Not on treatment. * Anemia: H/H down a bit today. 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 Objective: Vital Signs Temp Pulse Resp BP Pulse Ox 36.8 C 89 20 123/63 H 95 04/04/17 04:00 04/04/17 06:00 04/04/17 06:00 04/04/17 06:00 04/04/17 06:00 Laboratory Results 04/04/17 05:25 04/04/17 05:25 04/03/17 04/04/17 04/05/17 05:59 05:59 05:59 Intake Total 1550 350 Output Total 1350 1315 Balance 200 -965 PT 17.5 SEC (12.0-15.0) H 04/01/17 16:25 INR 1.44 (0.83-1.16) H 04/01/17 16:25 Physical Exam - Physical Exam General Appearance: alert, no apparent distress EENT: PERRL/EOMI Neck: non-tender Respiratory: chest non-tender, lungs clear, normal breath sounds Cardiac/Chest: normal peripheral pulses, regular rate, rhythm Abdomen: normal bowel sounds, non-tender, soft Pelvic Exam: deferred Rectal: deferred Skin: normal color, warm/dry ICD10 Worksheet Patient Problems: Problems Problem Status Onset Lumbar stenosis Acute
[2017-04-04] MEDS: ENOXAPARIN 40 MG/0.4 ML SYR SC SCH (11:10)
[2017-04-04] MEDS: MUPIROCIN 2% 22 GM OINT TP SCH ×2 (11:12→20:11)
--- NOTE | 2017-04-04 11:50 | GOP ---
[f rep st] OPERATIVE REPORT DATE OF OPERATION: 04/01/2017 SURGEON: Dragan Macdonald MD NEUROSURGEON: Dragan Macdonald MD ENVIRONMENTAL ENGINEERING ASSISTANT: Ngoc Villalobos NP. PREOPERATIVE DIAGNOSIS: Severe lumbar degenerative scoliosis with critical spinal stenosis and later al recess impingement and intractable back pain, failed conservative care. POSTOPERATIVE DIAGNOSIS: Severe lumbar degenerative scoliosis with critical spinal stenosis and late ral recess impingement and intractable back pain, failed conservative care. PROCEDURE PERFORMED: 1. T10 through sacral multilevel decompression and instrumentation (pedicle screw and axle device), fixation, and posterolateral fusion with local autograft and bone morphogenic protein. 2. Right-sided T12-L1 and L1-2 and left-sided L2-3 and L4-5 far lateral transpedicular decompression s with T12-L1, L1-2, L2-3, and L4-5 posterior/transforaminal lumbar interbody fusion with structural PEEK interbody spacers, local autograft, and bone morphogenic protein. 3. Use of intraoperative microscopy, fluoroscopy, and computer volumetric stereotactic navigation wi th intraoperative neurophysiologic testing. 4. Injection of intrathecal narcotic analgesics. 5. Identification and repair of spinal leak requiring extension of the laminectomy. FINDINGS: ESTIMATED BLOOD LOSS: 3400 cc. INDICATIONS: The patient is a 66-year-old woman with intractable low back pain and bilateral lower e xtremity radicular discomfort secondary to severe multilevel lumbar degenerative scoliosis with criti dorcas spinal stenosis and lateral recess impingement. She has failed extensive conservative care and p resents now for a multilevel surgical decompression and stabilization. DESCRIPTION OF PROCEDURE: After informed consent was obtained, the patient was taken to the operatin g room and placed in the prone position on the Kennedy table. The thoracolumbosacral areas were prep ped and draped in sterile fashion. After fluoroscopic localization of the correct levels, the subcut aneous and intramuscular tissues were infiltrated with local anesthesia. A midline linear incision w as then created from approximately T10 through the sacrum. This was carried down the fascial layer, which was then incised using monopolar electrocautery and carried in a subperiosteal plane along the spinous processes and lamina bilaterally. Intraoperative fluoroscopy was again utilized to verify th e correct levels. Following this, dissection was carried out laterally over the facet joints. After again re-verify the correct levels, the right-sided T12-L1 and L1-2 far lateral transpedicular decom pressions were performed with complete unroofing of the facet joints and neural foramen. The same wa s done at L4-5 on the left. The L2-3 level also had some significant spinal stenosis that was encoun tered upon doing the L1-2 level and upon re-evaluating the MRI intraoperatively, I felt that it was i n the best interest of the patient to also decompress this level, more from the left side, which was performed. There was an extensive amount of scarred down tissue, and there was a small durotomy due to some bone sticking into the dura that, when removed, there was no dura left. I put a single 4-0 N urolon suture in that after extending laminectomy for better exposure. Following this, the ecoVentnavigational system was brought in and using computer volumetric stereotactic navigation, pedicle screws were placed from T10 through S1. Note that the patient's body habitus (morbidly obese) made the exposure extremely difficult as well as placement of the screws. This was in combination of the severe scoliosis, angulation of her spine, and smaller pedicle screws on the concave side. All this made this very difficult and much more time consuming than normal, and she lost an extensive amount o f blood, both due to her body habitus and the degree of difficulty. Eventually, I was able to place screws in all the levels, and serial distraction was created across each interspace that was decompre ssed. Complete diskectomies were performed as best I could at the T12-L1, L1-2, L2-3, and L4-5 level s. The endplates were prepared and an appropriately sized structural PEEK interbody spacer packed wi th local autograft and demineralized bone matrix were placed in the interspaces for T12-L1, L1-2, L2- 3, and L4-5 posterior/transforaminal lumbar interbody fusions. The small rods were then removed, and longer rods from T10-S1 were placed. Note that the strong screws in the entire construct were at S1 , and I felt that it was not in the best interest of the patient to place iliac screws. Given this, instead, I would reinforce the lowest most and highest most levels of the axle devices in order to ho pefully prevent hardware failure, screw pullout, and junctional kyphosis. After the TLIFs were compl eted and the rods were placed with maximal amount of lordosis in order to prevent flat back syndrome, the locking caps were engaged and axial devices were placed at T10, T11, and at L5-S1. The remainin g lamina and facet joints were then extensively decorticated and the residual local autograft along w ith bone morphogenic protein and morselized allograft was placed out laterally for the posterolateral fusion from T10 through S1. A drain was then placed. The subcutaneous and intramuscular tissues we re re-infiltrated with local anesthesia. Duramorph 200 mcg along with 50 mcg of fentanyl were inject ed intrathecally for postoperative pain control. The wound was closed in a layered fashion using int errupted Vicryl sutures followed by Steri-Strips on the skin. COMPLICATIONS: None. DISPOSITION: The patient was extubated and transferred to the recovery room in stable condition. /[id number]/MODL
--- NOTE | 2017-04-04 13:54 | ASMTCMCOM ---
CM Note CM Note Notes: OT recommending HC with 24hr supervision. PT has not written recommendations as yet. Patient to transfer to the floor. Date Signed: 04/04/2017 01:54 PM Electronically Signed By:Kayleen Zhong LCSW
[2017-04-04] MEDS: MONTELUKAST SODIUM 10 MG TAB PO SCH (20:11)
[2017-04-05] MEDS: oxyCODONE IR 5 MG TAB PO PRN ×4 (05:04→20:37)
[2017-04-05] MEDS: ACETAMINOPHEN 500 MG TAB PO SCH ×3 (05:04→20:33)
[2017-04-05] MEDS: DIAZEPAM 5 MG TAB PO PRN ×3 (05:09→21:37)
[2017-04-05 05:37] LABS: HEMATOCRIT 27.7 % (38.0-47.0); HEMOGLOBIN 9.4 g/dL (12.6-16.3); MEAN CELL HEMOGLOBIN 28.4 pg (27.9-34.1); MEAN CELL HEMOGLOBIN CONCENTR. 33.9 g/dL (32.4-36.7); MEAN CELL VOLUME 83.7 fL (81.5-99.8); RED BLOOD CELL COUNT 3.31 10^6/uL (4.18-5.33); RED CELL DISTRIBUTION WIDTH 16.3 % (11.5-15.2)
[2017-04-05 06:19] LABS: ALANINE AMINOTRANSFERASE 55 IU/L (9-52); ALBUMIN 2.5 g/dL (3.5-5.0); ALKALINE PHOSPHATASE 56 IU/L (38-126); ANION GAP 6 mEq/L (8-16); ASPARTATE AMINOTRANSFERASE 38 IU/L (14-46); BILIRUBIN,TOTAL 1.1 mg/dL (0.1-1.4); CALCIUM 7.7 mg/dL (8.5-10.4); CARBON DIOXIDE 30 mEq/l (22-31); CHLORIDE 98 mEq/L (97-110); CREATININE 0.5 mg/dL (0.6-1.0); GLOMERULAR FILTRATION RATE > 60; GLUCOSE 103 mg/dL (70-100); POTASSIUM 3.9 mEq/L (3.5-5.2); SODIUM 134 mEq/L (134-144); TOTAL PROTEIN 4.4 g/dL (6.3-8.2)
--- NOTE | 2017-04-05 08:15 | NEUSURGPN ---
Date of Surgery: 04/01/17 Post Op Day: 4 Assessment/Plan: Assessment: 66 yr old s/p T10-S1 Fusion with TLIF at T12-L1, L1-2, L3-4, L4-5, intraop durotomy Plan: -PT/OT -Pain management, valium is making patient too sleepy-will try Robaxin in place today -Case management to eval dispo options when able -Wear brace when out of bed -Will DC BAKARI today -PICC placed yesterday and 2 units PRBCs infused, h/h this am 9.4/27.7 -Post op xrays pending, will try to get today -Dr Lenz will see patient later today, I discussed patient with Dr Lenz -Call neurosurgery with any questions/concerns Subjective: Patient having incisional pain Objective: AxO x3 PERRLA EOMI 5/ BUE, BLE Dressing CDI Neuro Check Frequency: per routine Urinary Catheter in Place: No Catheter Insertion Date: 04/01/17 - Physician Discussed Patient with : [facility] Neurosurgery Physical Exam - Vitals, I&O, Labs I and O 04/04/17 04/05/17 04/06/17 05:59 05:59 05:59 Intake Total 350 1050 Output Total 1315 1215 Balance -965 -165 Intake: Oral (ml) 350 350 Packed Red Blood Cells ( 700 ml) Output: Urine (ml) 1100 1175 Bedside Commode 1175 Catheter 1100 BAKARI Drain Output (ml) 215 40 Back 215 40 Other: Number of Voids Bedside Commode 1 Toilet 1 Vital Signs Temp Pulse Resp BP Pulse Ox 36.5 C 98 16 129/77 H 88 L 04/05/17 07:37 04/05/17 07:37 04/05/17 07:37 04/05/17 07:37 04/05/17 07:37 Laboratory Results 04/05/17 05:20 04/05/17 05:20 ICD10 Worksheet Patient Problems: Problems Problem Status Onset Lumbar stenosis Acute
[2017-04-05] MEDS: GABAPENTIN 300 MG CAP PO SCH ×2 (08:21→20:33)
[2017-04-05] MEDS: CHOLECALCIFEROL VIT D3 1,000 UNITS TAB PO SCH (08:23)
[2017-04-05] MEDS: SPIRONOLACTONE 25 MG TAB PO SCH (08:23)
[2017-04-05] MEDS: busPIRone 5 MG TAB PO SCH ×2 (08:24→20:33)
[2017-04-05] MEDS: PANTOPRAZOLE SODIUM 40 MG TAB PO SCH ×2 (08:25→20:35)
[2017-04-05] MEDS: LOSARTAN POTASSIUM 50 MG TAB PO SCH (08:25)
[2017-04-05] MEDS: DULoxetine 60 MG CAP PO SCH (08:25)
[2017-04-05] MEDS: SENNOSIDES/DOCUSATE SODIUM TAB PO SCH ×2 (08:25→20:35)
[2017-04-05] MEDS: POLYETHYLENE GLYCOL 3350 17 GM PKT PO SCH ×3 (08:26→20:35)
[2017-04-05] MEDS: ENOXAPARIN 40 MG/0.4 ML SYR SC SCH (08:26)
[2017-04-05] MEDS: MUPIROCIN 2% 22 GM OINT TP SCH ×2 (10:32→20:34)
[2017-04-05] MEDS: METHOCARBAMOL 750 MG TAB PO PRN (10:35)
--- NOTE | 2017-04-05 12:43 | ASMTCMCOM ---
CM Note CM Note Notes: PT rec SNF, spoke w pt and dghtr Shanna who are in agreement. [facility] accepts pt. Non-triggering PASRR in Allscripts. D/c plan of care: [facility] when medically stable. Date Signed: 04/05/2017 12:42 PM Electronically Signed By:JUNIE Sterling
[2017-04-05] MEDS: MONTELUKAST SODIUM 10 MG TAB PO SCH (20:34)
[2017-04-06] MEDS: oxyCODONE IR 5 MG TAB PO PRN ×5 (00:13→21:52)
[2017-04-06] MEDS: ACETAMINOPHEN 500 MG TAB PO SCH ×3 (05:05→21:47)
[2017-04-06] MEDS: METHOCARBAMOL 750 MG TAB PO PRN ×2 (05:11→14:48)
[2017-04-06] MEDS: CHOLECALCIFEROL VIT D3 1,000 UNITS TAB PO SCH (07:51)
[2017-04-06] MEDS: SPIRONOLACTONE 25 MG TAB PO SCH (07:52)
[2017-04-06] MEDS: busPIRone 5 MG TAB PO SCH ×2 (07:53→21:45)
[2017-04-06] MEDS: LOSARTAN POTASSIUM 50 MG TAB PO SCH (07:54)
[2017-04-06] MEDS: ENOXAPARIN 40 MG/0.4 ML SYR SC SCH (07:55)
[2017-04-06] MEDS: DULoxetine 60 MG CAP PO SCH (07:55)
[2017-04-06] MEDS: PANTOPRAZOLE SODIUM 40 MG TAB PO SCH ×2 (07:55→21:45)
[2017-04-06] MEDS: GABAPENTIN 300 MG CAP PO SCH ×2 (07:55→21:45)
[2017-04-06] MEDS: SENNOSIDES/DOCUSATE SODIUM TAB PO SCH ×2 (07:57→21:54)
[2017-04-06] MEDS: DIAZEPAM 5 MG TAB PO PRN ×3 (08:08→21:52)
[2017-04-06] MEDS: MUPIROCIN 2% 22 GM OINT TP SCH ×2 (08:14→21:57)
--- NOTE | 2017-04-06 08:15 | NEUSURGPN ---
Date of Surgery: 04/01/17 Post Op Day: 5 Assessment/Plan: Assessment: 66 yr old s/p T10-S1 Fusion with TLIF at T12-L1, L1-2, L3-4, L4-5, intraop durotomy POD#5 Plan: -PT/OT -Pain management, patient tolerating current regimen -Case management to eval dispo options when able, patient and daughter set to speak with [facility] today -Dc pending therapies recommendations -Wear brace when out of bed -Post op xrays stable hardware placement, reviewed with patient and daughter -Dr Lenz will see patient later today, I discussed patient with Dr Lenz -Call neurosurgery with any questions/concerns Subjective: Patient feeling better today, not as groggy Objective: AxO x3 PERRLA EOMI 5/ BUE, BLE Patient ambulating in room with walker Dressing CDI Neuro Check Frequency: per routine Urinary Catheter in Place: No Catheter Insertion Date: 04/01/17 - Physician Discussed Patient with : Torres Neurosurgery Physical Exam - Vitals, I&O, Labs I and O 04/05/17 04/06/17 04/07/17 05:59 05:59 05:59 Intake Total 1050 300 Output Total 1215 100 Balance -165 200 Intake: Oral (ml) 350 300 Packed Red Blood Cells ( 700 ml) Output: Urine (ml) 1175 100 Bedside Commode 1175 Toilet 100 BAKARI Drain Output (ml) 40 Back 40 Other: Intake Quantity Yes Sufficient Number of Voids Bedside Commode 1 Toilet 1 Number of Stools Toilet 1 Vital Signs Temp Pulse Resp BP Pulse Ox 36.4 C 81 16 108/57 L 97 04/06/17 07:36 04/06/17 07:36 04/06/17 07:36 04/06/17 07:36 04/06/17 07:36 Laboratory Results 04/05/17 05:20 04/05/17 05:20 ICD10 Worksheet Patient Problems: Problems Problem Status Onset Lumbar stenosis Acute
[2017-04-06] MEDS: POLYETHYLENE GLYCOL 3350 17 GM PKT PO SCH ×3 (11:53→21:54)
[2017-04-06] MEDS: traMADol 50 MG TAB PO PRN (12:33)
[2017-04-06] MEDS: MONTELUKAST SODIUM 10 MG TAB PO SCH (21:45)
[2017-04-07] MEDS: METHOCARBAMOL 750 MG TAB PO PRN ×2 (03:04→11:02)
[2017-04-07] MEDS: oxyCODONE IR 5 MG TAB PO PRN (03:04)
[2017-04-07] MEDS: ACETAMINOPHEN 500 MG TAB PO SCH (05:56)
[2017-04-07 07:45] VITALS: PULSE 85; RESP 16; TEMP 97.6; O2SAT 100
--- NOTE | 2017-04-07 08:17 | NEUSURGPN ---
Date of Surgery: 04/01/17 Post Op Day: 6 Assessment/Plan: Assessment: 66 yr old s/p T10-S1 Fusion with TLIF at T12-L1, L1-2, L3-4, L4-5, intraop durotomy POD#6 Plan: -PT/OT -Pain management, patient tolerating current PO regimen -DC to [facility] today -Wear brace when out of bed -Post op xrays stable hardware placement, reviewed with patient and daughter -I discussed patient with Dr Lenz -[facility] neurosurgery with any questions/concerns Subjective: Patient right sided pain gone today, expected incisional pain Objective: AxO x3 PERRLA EOMI 5/ BUE, BLE Patient ambulating in room with walker Dressing CDI Neuro Check Frequency: per routine Urinary Catheter in Place: No Catheter Insertion Date: 04/01/17 - Physician Discussed Patient with : Torres Neurosurgery Physical Exam - Vitals, I&O, Labs I and O 04/06/17 04/07/17 04/08/17 05:59 05:59 05:59 Intake Total 300 300 Output Total 100 750 Balance 200 -450 Intake: Oral (ml) 300 300 Output: Urine (ml) 100 750 Toilet 100 750 Other: Intake Quantity Yes Yes Sufficient Number of Voids Toilet 1 1 1 Number of Stools Toilet 1 1 Vital Signs Temp Pulse Resp BP Pulse Ox 36.4 C 85 16 138/70 H 100 04/07/17 07:45 04/07/17 07:45 04/07/17 07:45 04/07/17 07:45 04/07/17 07:45 Laboratory Results 04/05/17 05:20 04/05/17 05:20 ICD10 Worksheet Patient Problems: Problems Problem Status Onset Lumbar stenosis Acute
--- NOTE | 2017-04-07 08:25 | PDIAF ---
- Diagnosis Code Status: Full Code - Medication Management Discharge Medications: Medications to Continue on Transfer Acetaminophen [Tylenol ES 500 mg (*)] 1,000 mg PO Q6HRS PRN 03/18/17 [Last Taken 03/30/17 20:00] Acyclovir [Zovirax 400 mg (*)] 800 mg PO BID PRN 03/18/17 [Last Taken 3 Months Ago ~12/30/16] Albuterol [Proventil Inhaler HFA (*)] 2 puffs IH Q4H PRN 03/18/17 [Last Taken 1 Week Ago ~03/25/17] Albuterol [Proventil Neb] 3 ml IH QID PRN 03/18/17 [Last Taken 1 Week Ago ~03/25] Cholecalciferol Vit D3 [Vitamin D3 (*)] 4,000 units PO DAILY 03/18/17 [Last Taken 3 Months Ago ~12/30/16] DULoxetine [Cymbalta 60 MG (*)] 60 mg PO DAILY 03/18/17 [Last Taken 04/01/17 04: 00] Gabapentin [Neurontin 300 MG (*)] 300 mg PO DAILY 03/18/17 [Last Taken 04/01/17 04:00] Gabapentin [Neurontin 300 MG (*)] 600 mg PO HS 03/18/17 [Last Taken 03/31/17 20: 00] Herbals/Supplements -Info Only 1 ea PO DAILY 03/18/17 [Last Taken 1 Week Ago ~] Losartan Potassium [Cozaar 50 mg (*)] 50 mg PO DAILY 03/18/17 [Last Taken 06:00] Montelukast Sodium [Singulair 10 mg (*)] 10 mg PO HS 03/18/17 [Last Taken 20:00] Pantoprazole Sodium [Protonix 40mg (*)] 40 mg PO BID 03/18/17 [Last Taken 04:00] Spironolactone [Aldactone 25 MG (*)] 50 mg PO DAILY 03/18/17 [Last Taken 08:00] busPIRone [Buspar (*)] 7.5 mg PO BID 03/18/17 [Last Taken 04/01/17 04:00] rOPINIRole HCL [Requip 2mg (*)] 4 mg PO TID 03/18/17 [Last Taken 04/01/17 04:00] Doxycycline Hyclate [Vibramycin 100 MG (*)] 100 mg PO BID 03/31/17 [Last Taken 04/01/17 04:00] Mupirocin 2% [Bactroban 2% Nasal] 1 zhen TP BID 03/31/17 [Last Taken 04/01/17 04: 00] Acetaminophen [Tylenol ES 500 mg (*)] 1,000 mg PO Q8HRS tab 04/07/17 [Last Taken Unknown] Diazepam [Valium 5 MG (*)] 5 mg PO BID PRN 15 Days #30 tab 04/07/17 [Last Taken Unknown] Methocarbamol [Robaxin 750 mg (*)] 750 mg PO QID PRN 30 Days #120 tab 04/07/17 [ Last Taken Unknown] Polyethylene Glycol 3350 [Miralax 17 gm (*)] 17 gm PO TID #14 pkt 04/07/17 [ Last Taken Unknown] Sennosides/Docusate Sodium [Senokot-S] 1 - 2 tab PO BID tab 04/07/17 [Last Taken Unknown] oxyCODONE IR [Oxycodone Ir (*)] 5 - 10 mg PO Q4HRS PRN #90 tab 04/07/17 [Last Taken Unknown] traMADol [Ultram 50 mg (*)] 50 mg PO Q6HRS PRN #90 tab 04/07/17 [Last Taken Unknown] Discharge Medications: Refer to the Discharge Home Medication list for PRN reason. - Orders Services needed: Registered Nurse, Certified Business Objects Analyst, Physical Therapy, Occupational Therapy Isolation Type: Contact Isolation Diet Recommendation: no restrictions on diet Diet Texture: Regular Texture Diet Gary Stockings Discontinue Date: September dc Gary hose when walking 100yds 3-4 times per day Wound Care Instructions: No dressing needed. Ok to shower Sutures/[place] Site: [place] Activity/Weight Bearing Restrictions: No lifting greater than 10 pounds. No bending or twisting Equipment: Wear brace when out of bed - Follow Up Care Current Providers and Referrals: MAXIMINO DUARTE [Primary Care Provider] - Dragan Macdonald MD [Medical Doctor] - follow up in 2 weeks
[2017-04-07] MEDS: busPIRone 5 MG TAB PO SCH (08:57)
[2017-04-07] MEDS: traMADol 50 MG TAB PO PRN (08:58)
[2017-04-07] MEDS: SPIRONOLACTONE 25 MG TAB PO SCH (08:59)
[2017-04-07] MEDS: DULoxetine 60 MG CAP PO SCH (09:00)
[2017-04-07] MEDS: LOSARTAN POTASSIUM 50 MG TAB PO SCH (09:00)
[2017-04-07] MEDS: PANTOPRAZOLE SODIUM 40 MG TAB PO SCH (09:00)
[2017-04-07] MEDS: ENOXAPARIN 40 MG/0.4 ML SYR SC SCH (09:01)
[2017-04-07] MEDS: CHOLECALCIFEROL VIT D3 1,000 UNITS TAB PO SCH (09:01)
[2017-04-07] MEDS: GABAPENTIN 300 MG CAP PO SCH (09:01)
[2017-04-07 09:08] VITALS: BP 143/91
[2017-04-07] MEDS: SENNOSIDES/DOCUSATE SODIUM TAB PO SCH (09:08)
[2017-04-07] MEDS: POLYETHYLENE GLYCOL 3350 17 GM PKT PO SCH (09:08)
[2017-04-07] MEDS: MUPIROCIN 2% 22 GM OINT TP SCH (09:15)
--- NOTE | 2017-04-07 12:11 | ASDISCHSUM ---
Discharge Information Plan Status:SNF Medically Cleared to Leave: Discharge Date:04/07/2017 11:57 AM CM D/C Disposition:Senior Living Facility ADT D/C Disposition:Senior Living Facility Projected Discharge Date:04/06/2017 11:00 AM Transportation at D/C:Wheelchair Van Discharge Delay Reason: Follow-Up Date:04/06/2017 11:00 AM Discharge Slot: Final Diagnosis: Placement Information Referral Type:*Detention/SNF Referral ID:[id number] Provider Name:[facility] Address 1:[address] [place] [address] Address 2: City:[place] Selection Factors: State:[place] Patient Contact Information Contact Name:JEREMYTOMASALESLEY Relationship: Address:[address] [place] [address] Work Phone: City:[place] Alternate Phone: State/Zip Code:[place] [address] Email: Financial Information Financial Class: Primary Plan Desc:MEDICARE INPATIENT Primary Plan Number:[id number] Secondary Plan Desc:AARP/MDR SUPPLEMENT Secondary Plan Number:[id number] Assessment Information [facility] Initial CM Assessment Living Arrangements What is your living Answers: With Spouse arrangement? Who do you live with? Type Of Residence What kind of residence do Answers: House you live in? Discharge Plan Comments Coordination Status Comments Notes: Pt is a 66 y/o female admitted w/ hip and groin pain. Pt is post op day 1. PT, OT, SPL have been ordered and awaiting recommendations. Needs are TBD at this time. CM to follow. Date Signed: 04/02/2017 09:58 AM Electronically Signed By:HEMA Hernandez [facility] CM Progress Note CM Note CM Note Notes: OT recommending HC with 24hr supervision. PT has not written recommendations as yet. Patient to transfer to the floor. Date Signed: 04/04/2017 01:54 PM Electronically Signed By:Kayleen Zhong LCSW [facility] CM Progress Note CM Note CM Note Notes: PT rec SNF, spoke w pt and dghtr Shanna who are in agreement. [facility] [place] accepts pt. Non-triggering PASRR in Allscripts. D/c plan [facility] care: [facility] when medically stable. Date Signed: 04/05/2017 12:42 PM Electronically Signed By:JUNIE Sterling Case Management Discharge Plan Note Case Management Discharge Discharge Order Complete? Answers: Yes Patient to Obtain Answers: Other Notes: SNF Medications Transportation Arranged Answers: Other Notes: [facility] [place] set up wc Transport will Pick (Date 04/07/2017 11:30 AM & Time) EMTALA Complete Answers: No Case Management Transport Answers: No Form Complete Faxed Final Orders Answers: No Notes: All scripts Agency/Facility Transfer Answers: Yes Report Printed & Faxed to Receiving Agency Family Notified Answers: Yes Discharge Comments Notes: RN called report. Date Signed: 04/07/2017 12:10 PM Electronically Signed By:JUNIE Sterling Intervention Information
--- NOTE | 2017-05-09 20:05 | GDS ---
[f rep st] DISCHARGE SUMMARY PRIMARY DIAGNOSIS: Lumbar stenosis and scoliosis. OPERATIONS AND PROCEDURES: Operation performed on 04/01/2017: T10 to S1 fusion with translumbar int erbody fusion at T12-L1, L1-L2, L3-L4, L4-L5. HOSPITAL COURSE: The patient was admitted on 04/01/2017 to undergo a T10 to S1 fusion with translumb ar interbody fusion at T12-L1, L1-L2, L3-L4, and L4-L5. Patient tolerated the procedure well, was ta awilda to the PACU following surgery and admitted to the floor for her postoperative recovery. Patient was treated and evaluated by Physical Therapy and Occupational Therapy during her stay and ultimately was able to control her postoperative pain with a p.o. regimen. Postoperative x-rays were performed and demonstrated stable hardware placement without evidence of complication. [facility]. CONSULTS: Thermoforming Operator, Dr. Rush, for respiratory issues, including the management of asthma and sle ep apnea post surgery. COMPLICATIONS: None. DISCHARGE CONDITION: Good. Patient was discharged to [facility]07[facility], following a T10 to S1 fusion with translumbar interbody fusion at T12-L1, L1-L2, L3-L4, and L4-L5 with an intraoperative d urotomy on postop day 6. DISCHARGE INSTRUCTIONS: Patient will be discharged to [facility]. Will continue physical therapy and occupational therapy. Currently, her pain is being well managed with p.o. regimen. She is instruct ed to avoid any bending or lifting greater than 10 pounds or twisting. She is to wear her brace at a ll times when out of bed. She is scheduled to follow up in the office with Dr. Dragan Macdonald in 2 weeks upon discharge. She is to call our office with any further questions or concerns prior to h er postoperative visit. /[id number]/MODL
== END 2017-04-07 11:57 | DRG 454 ==
LOC: F3N 05:11 → F2N 10:00 → F3N 04-04 15:58
PROVIDERS: ADMIT Neurological Surgery; ATTEND Neurological Surgery
PROC: 30233L1 Transfusion of Nonautologous Fresh Plasma into Peripheral Vein, Percutaneous Approach (ICD-10-PCS; 2017-04-01)
PROC: 30233N1 Transfusion of Nonautologous Red Blood Cells into Peripheral Vein, Percutaneous Approach (ICD-10-PCS; 2017-04-01)
PROC: 4A1004G Monitoring of Central Nervous Electrical Activity, Intraoperative, Open Approach (ICD-10-PCS; principal; 2017-04-01 07:15)
PROC: 8E0WXBZ Computer Assisted Procedure of Trunk Region (ICD-10-PCS; principal; 2017-04-01 07:15)
PROC: 0SG1071 Fusion of 2 or more Lumbar Vertebral Joints with Autologous Tissue Substitute, Posterior Approach, Posterior Column, Open Approach (ICD-10-PCS; principal; 2017-04-01 07:15)
PROC: 0ST20ZZ Resection of Lumbar Vertebral Disc, Open Approach (ICD-10-PCS; principal; 2017-04-01 07:15)
PROC: 00QT0ZZ Repair Spinal Meninges, Open Approach (ICD-10-PCS; principal; 2017-04-01 07:15)
PROC: 0RGA071 Fusion of Thoracolumbar Vertebral Joint with Autologous Tissue Substitute, Posterior Approach, Posterior Column, Open Approach (ICD-10-PCS; principal; 2017-04-01 07:15)
PROC: 0SG3071 Fusion of Lumbosacral Joint with Autologous Tissue Substitute, Posterior Approach, Posterior Column, Open Approach (ICD-10-PCS; principal; 2017-04-01 07:15)
PROC: 0RTB0ZZ Resection of Thoracolumbar Vertebral Disc, Open Approach (ICD-10-PCS; principal; 2017-04-01 07:15)
PROC: 00NY0ZZ Release Lumbar Spinal Cord, Open Approach (ICD-10-PCS; principal; 2017-04-01 07:15)
PROC: 0RGA0AJ Fusion of Thoracolumbar Vertebral Joint with Interbody Fusion Device, Posterior Approach, Anterior Column, Open Approach (ICD-10-PCS; principal; 2017-04-01 07:15)
PROC: 0SG10AJ Fusion of 2 or more Lumbar Vertebral Joints with Interbody Fusion Device, Posterior Approach, Anterior Column, Open Approach (ICD-10-PCS; principal; 2017-04-01 07:15)
PROC: 02H633Z Insertion of Infusion Device into Right Atrium, Percutaneous Approach (ICD-10-PCS; 2017-04-04)
DX: M41.56 Other secondary scoliosis, lumbar region (principal); G96.11 Dural tear; M48.061 Spinal stenosis, lumbar region without neurogenic claudication; J45.909 Unspecified asthma, uncomplicated; G47.30 Sleep apnea, unspecified; D64.9 Anemia, unspecified; E66.09 Other obesity due to excess calories; I10 Essential (primary) hypertension; I48.2 Chronic atrial fibrillation
CPT/HCPCS: 97116-GP; 97161-GP; 97166-GO; 97530-GO; 97530-GP; 97535-GO; C1713; C1751; C1762; G8978-GP-CK; G8980-GP-CJ; G8987-GO-CK; G8988-GO-CI; J0171; J0690; J0697; J1650; J2270; J2274; J2405; J3010; J7060; P9012; P9016; P9017

== ENCOUNTER 2017-04-22 12:33 | Inpatient (IN) | payer OTHER, MEDICARE ==
[2017-04-22] MEDS ORDERED: ACETAMINOPHEN 325 MG TAB PO PRN (13:03)
[2017-04-22] MEDS ORDERED: ONDANSETRON DISINTEGRATING 4 MG TAB PO PRN (13:03)
[2017-04-22] MEDS ORDERED: ONDANSETRON 4 MG/2 ML VIAL IVP PRN (13:03)
[2017-04-22] MEDS ORDERED: ALBUTEROL 3 ML DEYVIAL IH PRN (16:53)
[2017-04-22] MEDS ORDERED: POLYETHYLENE GLYCOL 3350 17 GM PKT PO PRN (16:53)
[2017-04-22] MEDS: traMADol 50 MG TAB PO PRN (17:26)
[2017-04-22] MEDS: METHOCARBAMOL 750 MG TAB PO PRN (17:27)
[2017-04-22] MEDS ORDERED: NON-FORMULARY NEW DRUG (Simethicone [Gas-X] 125 MG) PO SCH (17:30)
--- NOTE | 2017-04-22 18:46 | GHP ---
[f rep st] HISTORY AND PHYSICAL DATE OF ADMISSION: 04/22/2017 CHIEF COMPLAINT: Right-sided flank and low back pain. 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 She u nderwent a T10 to S1 fusion with Dr. Macdonald on 04/01/17 for severe lumbar scoliosis, degenerat law disk disease, and stenosis. After her hospitalization, the patient was transferred to [facility] rehab, where she currently was residing up to today. Yesterday, the patient was seen in clinic for a postoperative appointment for a wound check and was reporting right-sided flank pain that was spasmo dic in nature. She was not having any leg pain or bowel or bladder changes. She did have some gener alized lower extremity weakness, which was being addressed at [facility] rehab. She does walk with th e assistance of a walker and is wearing an LSO brace. At yesterday's appointment, we reviewed x-rays of the patient's thoracolumbar spine, which demonstrated evidence of protrusion of the right T10 scr ew into the T9-10 disk space. Those images were from 04/12/17, and today the patient underwent repea t x-rays of the thoracolumbar spine, demonstrating interval increase of the protrusion of the screws into the disk space. The patient was reporting ongoing lower right-sided back pain just over her vianey ac crest, and there was a concern that she may have a kidney stone. She was evaluated in [facility] emergency department today and underwent a CT scan of the abdomen, which was negative f or kidney stones. It was decided, given the patient's ongoing pain and the evidence of progression o f the screws into the disk space, that the patient should be admitted to the hospital for further becky luation and treatment and revision surgery. ALLERGIES: Contrast dye, shellfish, sulfa, penicillins, iodine, and mycin. REVIEW OF SYSTEMS: Back pain, generalized lower extremity weakness. Otherwise negative than what is mentioned in the HPI. PHYSICAL EXAMINATION: GENERAL: Pleasant, tired-appearing 66-year-old female in no apparent distress . HEAD, EYES, EARS, NOSE, THROAT: Within normal limits. EXTREMITIES: Within normal limits. BACK: Her lumbar incision is healing and has some areas of scabbing that have been treated with antibioti c ointment and are under close observation. There is no evidence of drainage or redness. NEUROLOGIC : The patient is awake, alert, and oriented x4. Cranial nerves 2-12 are intact to gross examination . Speech is fluent. Tongue is midline. Spinal accessory muscles are intact. She has equal strengt h in bilateral upper extremities. She has some trembling when she stands on her own secondary to gen eralized leg weakness but has 5/5 strength in all muscle groups when individually tested in the lower extremities. Sensation is grossly intact to light touch in the upper and lower extremities. PAST MEDICAL HISTORY: 1. MRSA from cultures dated July 2016. 2. Asthma. 3. Sleep apnea. 4. Hypertension. SOCIAL HISTORY: She is and lives with her . She has a very supportive daughter. She has never smoked. FAMILY HISTORY: Unremarkable. DATA REVIEWED: AP and lateral x-rays of the thoracolumbar spine dated 04/12/17, from [facility], demonstrate T10 to S1 fusion with no evidence of hardware fracture or failure; however, th e right T10 screw appears to protrude into the T9-10 disk space. AP and lateral thoracolumbar x-rays dated 04/22/17 were reviewed, also from [facility], and demonstrate evidence of progre ssion of the T10 screws projecting into the T9-10 disk space. There is no evidence of fracture or margaret ny collapse or severe kyphosis above the fusion. IMPRESSION: This is a 66-year-old female, who is approximately 3 weeks out from a T10 to S1 fusion. Her preoperative pain has significantly improved, and she remains neurologically stable, with genera lized weakness of her lower extremities, which was currently being addressed at [facility] rehab, anna e she was progressing well. The patient was found to have evidence of the right T10 screw in the T9- 10 disk space, as well as right-sided lower back and flank pain that may or may not be related to the T10 screws. The patient did undergo an extensive workup today at [facility] emergency department, which was negative for kidney stone, and it was felt that the patient's pain was muscula r in nature. Regardless, the patient needs to undergo surgical revision to address the malpositioned screws. PLAN: Above issues were discussed with the patient in detail with her daughter and , as well as with Dr. Macdonald today. At this time, the patient will be admitted to the hospital. Hospit alist consult has been obtained, and they have seen the patient and will assist in her medical manage ment during her hospitalization. The patient will be fitted with a [place] brace, which she will wear whenever she is out of bed. She is tentatively scheduled for surgery on Tuesday at 4 p.m. at [facility]; however, this is subject to change. /[id number]/MODL
--- NOTE | 2017-04-22 19:52 | GCON ---
[f rep st] CONSULTATION CONSULTING PHYSICIAN: Dr. Macdonald. CONSULTING QUESTION: Medical management. HISTORY OF PRESENT ILLNESS: A 66-year-old female with a history of a recent hospitalization in 2016. She underwent T10-S1 fusion on 04/01/2017. Patient was discharged to a long-term care facility, re-presented the day of evaluation with complaints of worsening back pain. It is felt that the patient's hardware is in malposition. Patient is being admitted for surgical intervention. On the medical floor, patient reports her persistent back pain. Denies any palpitations, chest pain, shortness of breath. Reports tolerating normal oral intake without complication. Had previous cons tipation but is now passing stools without difficulty. Denies any difficulty passing urine or hematu nighat. Lower extremities are without any numbness or tingling. Denies any subjective fevers, chills, or meagan hes. PAST MEDICAL HISTORY: For this patient: 1. Hypertension. 2. Obesity. 3. Scoliosis. 4. Depression. 5. Restless legs syndrome. 6. Gastroesophageal reflux disease. SOCIAL HISTORY: Negative for tobacco, alcohol or illicit drugs. Patient has recently been in a long -term care facility for postoperative recovery. FAMILY HISTORY: Positive for hypertension. REVIEW OF SYSTEMS: A 10-point review of systems is negative with the exception of that reported in t he HPI. PHYSICAL EXAMINATION: VITAL SIGNS: Blood pressure 138/70, heart rate 85, respiratory rate 16, 94% o n room air, 37.0. GENERAL: This is a pleasant appearing middle-aged female, lying flat in bed. HEEN T: Notable for moist mucous membranes. Eye exam is negative for any icterus. CARDIAC: Patient is re gular rate and rhythm. PULMONARY: Good respiratory effort. Clear to auscultation bilaterally. GASTRO INTESTINAL: Positive bowel sounds. ABDOMEN: Obese and soft, nontender in all 4 quadrants. MUSCULOS KELETAL: Negative for any lower extremity edema. SKIN: Negative for any rashes. NEUROLOGIC: She is alert and oriented x3. PSYCHIATRIC: She is pleasant and cooperative on interview and examination. DATA: Lumbar spine from 04/05/2017, shows a well-seated posterior fusion at that time. Outside imag es are not available for my viewing currently. Laboratory: White count on 04/05 is 10.6, creatinine 0.5. ASSESSMENT AND PLAN: This is a 66-year-old female presenting with malpositioned hardware for surgica l repair. 1. Hypertension. Will continue patient's home medications. Patient is currently normotensive. Susp ect this will continue with her outpatient regimen. 2. Pain related to her fusion and misaligned hardware. Will continue the patient's Robaxin p.r.n., diazepam. Patient reports she has not needed her Neurontin recently so we will hold these. Any ricardo tional pain medications per Neurosurgery. 3. Gastroesophageal reflux disease. Will continue her twice daily Protonix. 4. Restless legs. The patient uses Requip which we will continue in the inpatient setting. 5. Prophylaxis with Lovenox. DIET: Regular. DISPOSITION: I expect greater than 2 midnights as the patient has required neurosurgical evaluation and a return trip to the operating room to address what is being described as malpositioned hardware. I have discussed the case with Neurosurgery. Thank you for the consultation. Will follow along with you. /[id number]/MODL
[2017-04-22] MEDS: SIMETHICONE 80 MG TAB CHEW PO SCH ×2 (20:07→21:00)
[2017-04-22] MEDS: PANTOPRAZOLE SODIUM 40 MG TAB PO SCH (20:26)
[2017-04-22] MEDS: MONTELUKAST SODIUM 10 MG TAB PO SCH (20:26)
[2017-04-22] MEDS: SENNOSIDES/DOCUSATE SODIUM TAB PO SCH (20:26)
[2017-04-22] MEDS: MUPIROCIN 2% 22 GM OINT TP SCH (20:28)
[2017-04-22] MEDS: DIAZEPAM 5 MG TAB PO PRN (20:57)
[2017-04-22] MEDS: busPIRone 5 MG TAB PO SCH (20:59)
[2017-04-22] MEDS ORDERED: MUPIROCIN 2% TP SCH (21:00)
[2017-04-22 21:24] LABS: % IMMATURE GRANULYOCYTES 0.3 % (0.0-1.1); ABSOLUTE IMMATURE GRANULOCYTES 0.03 10^3/uL (0.00-0.10); ADD DIFF? NO; ADD MORPH? NO; ADD SCAN? NO; ATYPICAL LYMPHOCYTE FLAG 10 (0-99); FRAGMENT RBC FLAG 0 (0-99); HEMATOCRIT 38.5 % (38.0-47.0); HEMOGLOBIN 12.5 g/dL (12.6-16.3); LEFT SHIFT FLG 0 (0-99); LIPEMIA HEMOLYSIS FLAG 80 (0-99); MEAN CELL HEMOGLOBIN 27.8 pg (27.9-34.1); MEAN CELL HEMOGLOBIN CONCENTR. 32.5 g/dL (32.4-36.7); MEAN CELL VOLUME 85.6 fL (81.5-99.8); MEAN PLATELET VOLUME 9.2 fL (8.7-11.7); PLATELET CLUMPS FLAG 10 (0-99); PLATELET COUNT 263 10^3/uL (150-400); RED CELL DISTRIBUTION WIDTH 15.5 % (11.5-15.2)
[2017-04-22 22:02] LABS: ANION GAP 11 mEq/L (8-16); CALCIUM 9.2 mg/dL (8.5-10.4); CARBON DIOXIDE 24 mEq/l (22-31); CHLORIDE 102 mEq/L (97-110); CREATININE 0.7 mg/dL (0.6-1.0); GLOMERULAR FILTRATION RATE > 60; GLUCOSE 105 mg/dL (70-100); POTASSIUM 4.2 mEq/L (3.5-5.2); SODIUM 137 mEq/L (134-144)
[2017-04-22] MEDS: HYDROCODONE/APAP 5/325 TAB PO PRN (22:19)
[2017-04-22] MEDS: ENOXAPARIN 40 MG/0.4 ML SYR SC SCH (22:20)
[2017-04-23] MEDS: ACETAMINOPHEN 500 MG TAB PO SCH ×4 (00:36→21:01)
[2017-04-23] MEDS: METHOCARBAMOL 750 MG TAB PO PRN ×3 (00:40→21:03)
[2017-04-23] MEDS: HYDROCODONE/APAP 5/325 TAB PO PRN ×3 (03:19→22:28)
[2017-04-23] MEDS: busPIRone 5 MG TAB PO SCH ×2 (08:46→21:02)
[2017-04-23] MEDS: ENOXAPARIN 40 MG/0.4 ML SYR SC SCH (08:47)
[2017-04-23] MEDS: SPIRONOLACTONE 25 MG TAB PO SCH (08:48)
[2017-04-23] MEDS: SENNOSIDES/DOCUSATE SODIUM TAB PO SCH ×2 (08:48→21:01)
[2017-04-23] MEDS: DULoxetine 60 MG CAP PO SCH (08:48)
[2017-04-23] MEDS: LOSARTAN POTASSIUM 50 MG TAB PO SCH (08:49)
[2017-04-23] MEDS: traMADol 50 MG TAB PO PRN ×2 (08:49→21:02)
[2017-04-23] MEDS: SIMETHICONE 80 MG TAB CHEW PO SCH ×4 (08:49→21:03)
[2017-04-23] MEDS: PANTOPRAZOLE SODIUM 40 MG TAB PO SCH ×2 (08:50→21:03)
[2017-04-23] MEDS: MUPIROCIN 2% 22 GM OINT TP SCH ×2 (08:56→21:16)
--- NOTE | 2017-04-23 10:56 | NEUSURGPN ---
Assessment/Plan: 66 yo female s/p T10-S1 fusion on 03/28 with evidence of T10 screws advancing into the T9/10 disc space - neuro stable - pain controlled - plan for OR on Wednesday 04/[address] Lenz at 1600 for hardware removal and extension of fusion - wear Ruth brace when out of bed - please contact neurosurgery with any changes in neuro status/exam Subjective: Having pain from the back radiating around towards the front along the ribcage, controlled. Admits to achiness at the bilateral gluteal and thigh region. Objective: Awake. Alert. Muscle strength full at 5/5 Sensation intact Incision c/d/i Neurosurgery Physical Exam - Vitals, I&O, Labs I and O 04/22/17 04/23/17 04/24/17 05:59 05:59 05:59 Weight 90.718 kg Other: Number of Voids Toilet 1 Vital Signs Temp Pulse Resp BP Pulse Ox 36.6 C 95 12 159/97 H 94 04/23/17 07:30 04/23/17 07:30 04/23/17 07:30 04/23/17 08:49 04/23/17 07:30 Laboratory Results 04/22/17 21:15 04/22/17 21:15 ICD10 Worksheet Patient Problems: Problems Problem Status Onset Lumbar stenosis Acute
--- NOTE | 2017-04-23 13:28 | HOSPPROG ---
Hospitalist Progress Note Assessment/Plan: Patient is a 66-year-old female who came to the emergency room for persistent back pain. The plan is for her to have surgery on April 25. It is felt that the patient's hardware is in malposition. Today is my 1st encounter with the patient. Chart reviewed. Back pain status post T10-S1 fusion on March 28 -there is evidence of T10 screws advancing into the disc space -plan is for surgery on Tuesday with Dr. Lenz for hardware removal and extension of the fusion -to wear a [place] brace when out of bed * hypertension -home meds resumed, p.r.n. hydralazine ordered for systolic greater than 160 * GERD -Protonix * restless leg syndrome -no complaints * DVT prophylaxis: A thrombotic pumps, Lovenox was discontinued by neuro surgical services likely due to upcoming surgery * plan. Will order p.r.n. medication for elevated blood pressure, will check a vitamin D level. Patient describes having weak bones. Will ask dietitian to see to help her optimize adequate intake prior to surgery Subjective: Phoebe has no complaints. Objective: Vital Signs Temp Pulse Resp BP Pulse Ox 36.8 C 88 14 157/88 H 95 04/23/17 12:00 04/23/17 12:00 04/23/17 12:00 04/23/17 12:00 04/23/17 12:00 Laboratory Results 04/22/17 21:15 04/22/17 21:15 - Physical Exam Constitutional: no apparent distress, appears nourished, not in pain Eyes: PERRL Ears, Nose, Mouth, Throat: hearing normal Cardiovascular: regular rate and rhythym Respiratory: no respiratory distress Gastrointestinal: normoactive bowel sounds Skin: warm Musculoskeletal: generalized weakness Neurologic: AAOx3 Psychiatric: interacting appropriately, not anxious ICD10 Worksheet Patient Problems: Problems Problem Status Onset Lumbar stenosis Acute
[2017-04-23] MEDS ORDERED: hydrALAZINE 10 MG TAB PO PRN (16:44)
--- NOTE | 2017-04-23 16:48 | ASMTCMCOM ---
CM Note CM Note Notes: Pt admitted with back pain from [facility] where she was doing rehab after back surgery Mar 28. Plan is for pt to go back to surgery on Tuesday, Apr 25. Spoke w/Bridget at [facility] who said that pt was towards the end of her rehab (Apr 29 dc planned) and they are able to accept back at any time if need be. Met w/pt to discuss. She is hoping to go home where she lives w/ if possible but open to returning to [facility] if needed. They live in trailer in back of her daughters house. Pt has other daughter, Shanna, who pt says is the one to talk to regarding any dc planning. Pt reported that she has amnesia so won't remember what we talked about today. We discussed that we will see how she does after surgery and plan accordingly. CM will follow. Date Signed: 04/23/2017 04:47 PM Electronically Signed By:Aislinn Clark RN
[2017-04-23] MEDS: MONTELUKAST SODIUM 10 MG TAB PO SCH (21:02)
[2017-04-23] MEDS: DIAZEPAM 5 MG TAB PO PRN (23:30)
[2017-04-24] MEDS: METHOCARBAMOL 750 MG TAB PO PRN ×2 (03:09→09:25)
[2017-04-24] MEDS: traMADol 50 MG TAB PO PRN ×2 (03:09→11:44)
[2017-04-24] MEDS: ACETAMINOPHEN 500 MG TAB PO SCH ×4 (05:06→22:18)
[2017-04-24] MEDS: HYDROCODONE/APAP 5/325 TAB PO PRN ×4 (05:12→20:40)
--- NOTE | 2017-04-24 08:14 | HOSPPROG ---
Hospitalist Progress Note Assessment/Plan: Patient is a 66-year-old female who came to the emergency room for persistent back pain. The plan is for her to have surgery on April 25. It is felt that the patient's hardware is in malposition. Back pain status post T10-S1 fusion on March 28 -there is evidence of T10 screws advancing into the disc space -plan is for surgery on Tuesday with Dr. Lenz for hardware removal and extension of the fusion -to wear a Ruth brace when out of bed * hypertension -home meds resumed, p.r.n. hydralazine ordered for systolic greater than 160 * GERD -Protonix * restless leg syndrome -no complaints * DVT prophylaxis: A thrombotic pumps, Lovenox was discontinued by neuro surgical services likely due to upcoming surgery * plan. Patient to go to OR tomorrow. Please note the patient has significant confusion any time she received anesthesia that can last several days after surgery Subjective: Phoebe has no complaints/ pain is well managed. Objective: Vital Signs Temp Pulse Resp BP Pulse Ox 36.8 C 88 14 155/99 H 92 04/24/17 04:00 04/24/17 04:00 04/24/17 04:00 04/24/17 04:00 04/24/17 04:00 Laboratory Results 04/22/17 21:15 04/22/17 21:15 04/23/17 04/24/17 04/25/17 05:59 05:59 05:59 Intake Total 1999 Balance 1999 - Physical Exam Constitutional: no apparent distress, not in pain, obese Eyes: PERRL Ears, Nose, Mouth, Throat: hearing normal Cardiovascular: regular rate and rhythym Respiratory: no respiratory distress Gastrointestinal: normoactive bowel sounds Skin: warm Musculoskeletal: generalized weakness Neurologic: AAOx3 Psychiatric: interacting appropriately ICD10 Worksheet Patient Problems: Problems Problem Status Onset Lumbar stenosis Acute
[2017-04-24] MEDS: busPIRone 5 MG TAB PO SCH ×2 (09:26→20:38)
[2017-04-24] MEDS: LOSARTAN POTASSIUM 50 MG TAB PO SCH (09:27)
[2017-04-24] MEDS: PANTOPRAZOLE SODIUM 40 MG TAB PO SCH ×2 (09:27→20:36)
[2017-04-24] MEDS: SENNOSIDES/DOCUSATE SODIUM TAB PO SCH ×2 (09:27→20:36)
[2017-04-24] MEDS: SIMETHICONE 80 MG TAB CHEW PO SCH ×4 (09:27→20:36)
--- NOTE | 2017-04-24 09:29 | NEUSURGPN ---
Assessment/Plan: 66 yo female s/p T10-S1 fusion on 03/28 with evidence of T10 screws advancing into the T9/10 disc space - neuro stable - pain controlled - plan for OR tomorrow, Wednesday 04/[address] Lenz at 1600 for hardware removal and extension of fusion - wear Ruth brace when out of bed - consent signed, NPO after midnight - please contact neurosurgery with any changes in neuro status/exam Subjective: Having pain localized to the left hip. Objective: Awake. Alert. PERRL. EOMI Facial expression symmetrical Muscle strength full at 5/5 Sensation intact Incision c/d/i Neurosurgery Physical Exam - Vitals, I&O, Labs I and O 04/23/17 04/24/17 04/25/17 05:59 05:59 05:59 Intake Total 1999 Balance 1999 Weight 90.718 kg Intake: Oral (ml) 1999 Other: Intake Quantity Yes Sufficient Number of Voids Toilet 1 4 Vital Signs Temp Pulse Resp BP Pulse Ox 36.4 C 93 16 140/77 H 91 L 04/24/17 08:00 04/24/17 08:00 04/24/17 08:00 04/24/17 09:27 04/24/17 08:00 Laboratory Results 04/22/17 21:15 04/22/17 21:15 ICD10 Worksheet Patient Problems: Problems Problem Status Onset Lumbar stenosis Acute
[2017-04-24] MEDS: MUPIROCIN 2% 22 GM OINT TP SCH ×2 (11:47→20:45)
[2017-04-24] MEDS: DULoxetine 60 MG CAP PO SCH (11:51)
[2017-04-24] MEDS: SPIRONOLACTONE 25 MG TAB PO SCH (11:51)
[2017-04-24] MEDS: MONTELUKAST SODIUM 10 MG TAB PO SCH (20:36)
[2017-04-24] MEDS ORDERED: CHLORHEXIDINE GLUC HIBICLENS 118 ML BTL TP ONE (21:10)
[2017-04-24] MEDS: DIAZEPAM 5 MG TAB PO PRN (23:19)
[2017-04-25] MEDS: HYDROCODONE/APAP 5/325 TAB PO PRN ×2 (00:50→07:30)
[2017-04-25] MEDS: traMADol 50 MG TAB PO PRN (03:41)
[2017-04-25] MEDS: METHOCARBAMOL 750 MG TAB PO PRN (03:41)
[2017-04-25] MEDS ORDERED: LR 1,000 ML IV SCH (09:00)
--- NOTE | 2017-04-25 09:08 | HOSPPROG ---
Hospitalist Progress Note Assessment/Plan: Patient is a 66-year-old female who came to the emergency room for persistent back pain. The plan is for her to have surgery on April 25. It is felt that the patient's hardware is in malposition. Back pain status post T10-S1 fusion on March 28 -there is evidence of T10 screws advancing into the disc space -plan is for surgery today with Dr. Lenz for hardware removal and extension of the fusion -to wear a [place] brace when out of bed -NPO, ordered IV fluids * hypertension -home meds resumed, p.r.n. hydralazine ordered for systolic greater than 160 -bp stable * GERD -Protonix * restless leg syndrome -no complaints * DVT prophylaxis: A thrombotic pumps, Lovenox was discontinued by neuro surgical services likely due to upcoming surgery * plan. Patient to go to OR today Please note the patient has significant confusion any time she received anesthesia that can last several days after surgery Subjective: Phoebe is hopeful about getting surgery, having pain in left gluteus area. Objective: Vital Signs Temp Pulse Resp BP Pulse Ox 36.6 C 91 16 126/85 H 94 04/25/17 07:40 04/25/17 07:40 04/25/17 07:40 04/25/17 07:40 04/25/17 07:40 Laboratory Results 04/22/17 21:15 04/22/17 21:15 04/24/17 04/25/17 04/26/17 05:59 05:59 05:59 Intake Total 1999 1750 Balance 1999 1750 - Physical Exam Constitutional: no apparent distress, appears nourished, uncomfortable Eyes: PERRL Ears, Nose, Mouth, Throat: hearing normal Cardiovascular: regular rate and rhythym Respiratory: no respiratory distress Gastrointestinal: normoactive bowel sounds Skin: warm Musculoskeletal: generalized weakness Neurologic: AAOx3 Psychiatric: interacting appropriately ICD10 Worksheet Patient Problems: Problems Problem Status Onset Lumbar stenosis Acute
[2017-04-25] MEDS: SIMETHICONE 80 MG TAB CHEW PO SCH ×4 (09:56→23:21)
[2017-04-25] MEDS: busPIRone 5 MG TAB PO SCH ×2 (09:57→23:17)
[2017-04-25] MEDS: DULoxetine 60 MG CAP PO SCH (09:58)
[2017-04-25] MEDS: LOSARTAN POTASSIUM 50 MG TAB PO SCH (09:58)
[2017-04-25] MEDS: PANTOPRAZOLE SODIUM 40 MG TAB PO SCH ×2 (10:00→23:19)
[2017-04-25] MEDS: SPIRONOLACTONE 25 MG TAB PO SCH (10:02)
[2017-04-25] MEDS: SENNOSIDES/DOCUSATE SODIUM TAB PO SCH ×2 (10:02→23:21)
[2017-04-25] MEDS: MUPIROCIN 2% 22 GM OINT TP SCH ×2 (10:09→23:19)
--- NOTE | 2017-04-25 10:47 | NEUSURGPN ---
Assessment/Plan: Assessment/Plan: 66 yo female s/p T10-S1 fusion on 03/28 with evidence of T10 screws advancing into the T9/10 disc space - neuro stable -To OR today at 1600 -NPO, orders in, lovenox held -Ruth brace when out of bed - pain controlled - consent signed - please contact neurosurgery with any changes in neuro status/exam Subjective: Having pain localized to the left hip still. No other changes. Ready for OR later today. Wants to make sure that providers know that she has prolonged amnesia after surgery and is not reliable source of pain and to listen to family about pain levels. She feels she was over medicated after surgery last time as she was not a reliable source. Objective: Awake. Alert. PERRL. EOMI Facial expression symmetrical Muscle strength full at 5/5 Sensation intact Incision c/d/i - Physician Discussed Patient with : Torres Neurosurgery Physical Exam - Vitals, I&O, Labs I and O 04/24/17 04/25/17 04/26/17 05:59 05:59 05:59 Intake Total 1999 1750 Balance 1999 175 Intake: Oral (ml) 1999 1749 Other: Intake Quantity Yes No: NPO Sufficient Number of Voids Toilet 4 1 Number of Stools Toilet 1 Vital Signs Temp Pulse Resp BP Pulse Ox 36.6 C 91 16 143/80 H 94 04/25/17 07:40 04/25/17 07:40 04/25/17 07:40 04/25/17 09:58 04/25/17 07:40 Laboratory Results 04/22/17 21:15 04/22/17 21:15 ICD10 Worksheet Patient Problems: Problems Problem Status Onset Lumbar stenosis Acute
[2017-04-25] MEDS ORDERED: ceFAZolin 2 GM/DEXTROSE 100 ML IV ONE (14:00)
[2017-04-25] MEDS ORDERED: fentaNYL 100 MCG/2 ML INJ IT ONE (14:06)
[2017-04-25] MEDS ORDERED: TRANEXAMIC ACID 1,000 MG in NS 100 ML IV ONE (14:06)
[2017-04-25] MEDS ORDERED: morphINE PF 5 MG/10 ML INJ IT ONE (14:06)
[2017-04-25] MEDS ORDERED: ceFAZolin 2 GM/SWFI 2 GM/20 ML SYR IVP ONE (14:06)
[2017-04-25] MEDS ORDERED: LR 1,000 ML IV ONE (14:13)
[2017-04-25] MEDS ORDERED: ceFAZolin 2 GM/SWFI 20 ML SYR IVP ONE (14:31)
[2017-04-25] MEDS ORDERED: THROMBIN (BOVINE) 20,000 UNIT VIAL TP ONE (14:41)
[2017-04-25] MEDS ORDERED: THROMBIN (BOVINE) 5,000 UNIT VIAL TP ONE (14:41)
[2017-04-25] MEDS ORDERED: BUPIVACAINE 0.25% 30 ML SDV ONE (14:41)
[2017-04-25] MEDS ORDERED: BACITRACIN 50,000 UNITS/10 ML SYR IRR ONE ×2 (14:42→17:12)
[2017-04-25] MEDS ORDERED: CITRATE DEXTROSE SOLN 500 ML BAG ONE (14:42)
--- NOTE | 2017-04-25 14:54 | PDANEPAE ---
ANE History of Present Illness Spine HW removal with extension of fusion to T7 ANE Past Medical History - Cardiovascular History Hx Hypertension: Yes Hx Arrhythmias: Yes Hx Chest Pain: No Hx Coronary Artery / Peripheral Vascular Disease: No Hx CHF / Valvular Disease: No Hx Palpitations: No Cardiovascular History Comment: chronic a-Fib, - Pulmonary History Hx COPD: No Hx Asthma/Reactive Airway Disease: No Hx Recent Upper Respiratory Infection: No Hx Oxygen in Use at Home: No Hx Sleep Apnea: Yes Sleep Apnea Screening Result - Last Documented: Positive Pulmonary History Comment: asthma. Hx of sleep apnea - Neurologic History Hx Cerebrovascular Accident: No Hx Seizures: No Hx Dementia: No - Endocrine History Hx Diabetes: No - Renal History Hx Renal Disorders: No - Liver History Hx Hepatic Disorders: No - Neurological & Psychiatric Hx Hx Neurological and Psychiatric Disorders: Yes Neurological / Psychiatric History Comment: anxiety,depression - Cancer History Hx Cancer: No - Congenital Disorder History Hx Congenital Disorders: No - GI History Hx Gastrointestinal Disorders: Yes Gastrointestinal History Comment: Gerd controlled. gall baldder disease w Sx - Other Health History Other Health History: osteo arthritis,. fibro-myalgia. 1995 spinal injury. chronic sinusitis - Chronic Pain History Chronic Pain: Yes (THORACIC SPINE,FIBROMYALGIA RELATED PAIN WELL) - Surgical History Prior Surgeries: CHANG shoulder replacement,. B knee,. B hammertoes ANE Review of Systems Review of Systems: atypical chest pain related to fibromyalgia - Exercise capacity Exercise capacity: limited by disability ANE Patient History - Allergies Allergies/Adverse Reactions: cyanocobalamin (vitamin B12) Allergy (Unknown, Verified 04/25/17 09:08) Hives suture Allergy (Unknown, Verified 04/25/17 09:12) adhesive tape Allergy (Verified 04/22/17 15:11) Other-Enter Comments erythromycin base Allergy (Verified 03/18/17 14:32) Vomiting Iodinated Contrast- Oral and IV Dye Allergy (Verified 03/18/17 15:57) Swelling/neck,face,throat propoxyphene [From Darvocet-N] Allergy (Verified 04/22/17 15:11) Hives shellfish derived Allergy (Verified 04/22/17 15:11) Hives Sulfa (Sulfonamide Antibiotics) Allergy (Verified 03/18/17 14:32) Hives vicryl Allergy (Uncoded 03/18/17 14:32) - Home Medications Home medications: home medication list seen and reviewed Home Medications: Acyclovir [Zovirax 400 mg (*)] 800 mg PO BID PRN 03/18/17 [Last Taken 3 Months Ago ~12/30/16] Albuterol [Proventil Inhaler HFA (*)] 2 puffs IH Q4H PRN 03/18/17 [Last Taken 1 Week Ago ~03/25/17] Albuterol [Proventil Neb] 3 ml IH QID PRN 03/18/17 [Last Taken 1 Week Ago ~03/25] DULoxetine [Cymbalta 60 MG (*)] 60 mg PO DAILY 03/18/17 [Last Taken 04/21/17] Gabapentin [Neurontin 300 MG (*)] 300 mg PO DAILY 03/18/17 [Last Taken 04/21/17] Gabapentin [Neurontin 300 MG (*)] 600 mg PO HS 03/18/17 [Last Taken 04/21/17] Losartan Potassium [Cozaar 50 mg (*)] 50 mg PO DAILY 03/18/17 [Last Taken ] Montelukast Sodium [Singulair 10 mg (*)] 10 mg PO HS 03/18/17 [Last Taken ] Pantoprazole Sodium [Protonix 40mg (*)] 40 mg PO BID 03/18/17 [Last Taken ] Spironolactone [Aldactone 25 MG (*)] 50 mg PO DAILY 03/18/17 [Last Taken 08:00] busPIRone [Buspar (*)] 7.5 mg PO BID 03/18/17 [Last Taken 04/21/17] rOPINIRole HCL [Requip 2mg (*)] 4 mg PO DAILY 03/18/17 [Last Taken 04/21/17] Mupirocin 2% [Bactroban 2% Nasal] 1 zhen TP BID 03/31/17 [Last Taken 04/21/17] Polyethylene Glycol 3350 [Miralax 17 gm (*)] 17 gm PO TID PRN 04/22/17 [Last Taken 04/21/17] Simethicone [Gas-X] 125 mg PO ACHS 04/22/17 [Last Taken 04/21/17] rOPINIRole HCL [Requip 2mg (*)] 8 mg PO HS 12/01/17 [Last Taken 04/21/17] - NPO status NPO Status: no food or drink >8 hours NPO Since - Liquids (Date): 04/25/17 NPO Since - Liquids (Time): 00:00 NPO Since - Solids (Date): 04/25/17 NPO Since - Solids (Time): 00:00 - Anes Hx Anes Hx: slow to awaken from anesthesia - Smoking Hx Smoking Status: Never smoked - Family Anes Hx Family Hx Anesthesia Complications: slow to awaken ANE Labs/Vital Signs - Labs Result Diagrams: 04/22/17 21:15 04/22/17 21:15 - Vital Signs Blood Pressure: 150/92 Heart Rate: 89 Respiratory Rate: 15 O2 Sat (%): 95 Height: 157.48 cm Weight: 90.718 kg ANE Physical Exam - Airway Neck exam: FROM Mallampati Score: Class 2 Mouth exam: normal dental/mouth exam - Pulmonary Pulmonary: no respiratory distress - Cardiovascular Cardiovascular: regular rate and rhythym - ASA Status ASA Status: III ANE Anesthesia Plan Anesthesia Plan: general endotracheal anesthesia Lines/Monitors: arterial line
[2017-04-25] MEDS ORDERED: ONDANSETRON 4 MG/2 ML VIAL ONE (15:09)
[2017-04-25] MEDS ORDERED: DEXAMETHASONE 4 MG/ML VIAL ONE (15:09)
[2017-04-25] MEDS ORDERED: LIDOCAINE 2% 100 MG/5 ML SYR ONE (15:09)
[2017-04-25] MEDS ORDERED: ROCURONIUM 50 MG/5 ML VIAL ONE (15:09)
[2017-04-25] MEDS ORDERED: fentaNYL 100 MCG/2 ML INJ ONE ×2 (15:10→19:54)
[2017-04-25] MEDS ORDERED: PROPOFOL/EMULSION 500 MG/50 ML BOTTLE IV ONE (15:10)
[2017-04-25] MEDS ORDERED: REMIFENTANIL HCL 1 MG VIAL ONE (15:10)
[2017-04-25] MEDS ORDERED: PROPOFOL 200 MG/20 ML VIAL ONE (15:10)
[2017-04-25] MEDS ORDERED: HYDROmorphONE/DILAUDID 2 MG/ML INJ ONE (15:10)
[2017-04-25] MEDS ORDERED: MIDAZOLAM 2 MG/2 ML VIAL ONE (15:38)
[2017-04-25] MEDS ORDERED: MIDAZOLAM 2 MG/2 ML VIAL IVP ONE (15:41)
[2017-04-25] MEDS ORDERED: LABETALOL HCL 5 MG/ML 20 ML MDV IVP PRN (17:56)
[2017-04-25] MEDS ORDERED: PROMETHAZINE HCL 25 MG/ML INJ IVP PRN (17:56)
[2017-04-25] MEDS ORDERED: DIAZEPAM 10 MG/2 ML SYR IVP PRN (17:56)
[2017-04-25] MEDS ORDERED: NALOXONE HCL 0.4 MG/ML INJ IVP PRN ×2 (17:56→19:24)
[2017-04-25] MEDS ORDERED: MEPERIDINE 25 MG/ML SYR IVP PRN (17:56)
[2017-04-25] MEDS ORDERED: OXYCODONE/APAP 5/325 TAB PO PRN (17:56)
[2017-04-25] MEDS ORDERED: CEFEPIME HCL 2 GM in D5W 100 ML IV ONE (18:45)
[2017-04-25] MEDS ORDERED: VANCOMYCIN 1.5 GM in D5W 250 ML IV ONE (19:00)
[2017-04-25] MEDS ORDERED: MAGNESIUM HYDROXIDE 30 ML UDCUP PO PRN (19:24)
[2017-04-25] MEDS ORDERED: BISACODYL 10 MG SUPP PR PRN (19:24)
[2017-04-25] MEDS ORDERED: diphenhydrAMINE 25 MG CAP PO PRN (19:24)
[2017-04-25] MEDS ORDERED: morphINE PCA 30 MG/30 ML PCA IV PRN (19:24)
--- NOTE | 2017-04-25 19:38 | SOAPPROG ---
TONI Progress Note Assessment/Plan: Assessment: 66 yo F sp T7-S1 fusion revision Plan: stable TLSO brace to be fit in am plan for bedrest for now JPx 2 intraoperative cultures sent, keep on vanco/maxipime for now per Dr Lenz please call with neuro changes 04/25/17 19:37 Subjective: + back pain, no leg pain Objective: Vital Signs Temp Pulse Resp BP Pulse Ox 36.4 C 89 15 150/92 H 95 04/25/17 14:09 04/25/17 14:54 04/25/17 14:54 04/25/17 14:54 04/25/17 14:54 Microbiology 04/25/17 17:12 Mycobacterial Smear (KING) - Final Back - Eswab Mycobacterial Culture - Final 04/25/17 17:11 Mycobacterial Smear (KING) - Final Back - Eswab Mycobacterial Culture - Final 04/25/17 17:10 Mycobacterial Smear (KING) - Final Back - Eswab Mycobacterial Culture - Final Laboratory Results 04/22/17 21:15 04/22/17 21:15 04/24/17 04/25/17 04/26/17 05:59 05:59 05:59 Intake Total 1999 1750 Balance 1999 1750 Awake, alert PERRL, no facial droop ZENON x 4 + light touch ICD10 Worksheet Patient Problems: Problems Problem Status Onset Lumbar stenosis Acute
--- NOTE | 2017-04-25 19:41 | POSTANESTH ---
Post Anesthetic Evaluation Cardiovascular Status: Similar to Pre-Op Cond Respiratory Status: Normal, Stable, Similar to Pre-op Cond. Level of Consciousness/Mental Status: Can Participate in Eval, Mildly Sleepy, Arousable Pain Control: Inadeq, Add Tx Required Nausea/Vomiting Control: Adequate, Prn Tx Ordered Complications Possibly Related to Anesthesia: None Noted
[2017-04-25] MEDS ORDERED: HYDROmorphONE/DILAUDID 1 MG/ML INJ ONE (19:54)
[2017-04-25] MEDS: fentaNYL 100 MCG/2 ML INJ IVP PRN ×2 (19:58→20:12)
[2017-04-25] MEDS: HYDROmorphONE/DILAUDID 1 MG/ML INJ IVP PRN ×2 (20:01→20:13)
[2017-04-25] MEDS: ACETAMINOPHEN 500 MG TAB PO SCH ×2 (23:01→23:16)
[2017-04-25] MEDS: DIAZEPAM 5 MG TAB PO PRN (23:17)
[2017-04-25] MEDS: FAMOTIDINE 20 MG TAB PO SCH (23:18)
[2017-04-25] MEDS: MONTELUKAST SODIUM 10 MG TAB PO SCH (23:18)
[2017-04-25] MEDS: NS W/ 20 KCl/L 1,000 ML IV SCH (23:32)
[2017-04-26] MEDS: oxyCODONE IR 5 MG TAB PO PRN ×3 (00:22→23:59)
--- NOTE | 2017-04-26 03:16 | CPEKG ---
Heart Rate: 100 RR Interval: 600 P-R Interval: 148 QRSD Interval: 82 QT Interval: 368 QTC Interval: 475 P [place]: 59 QRS [place]: 23 T Wave [place]: 77 EKG Severity - ABNORMAL ECG - EKG Impression: SINUS TACHYCARDIA EKG Impression: MULTIPLE VENTRICULAR PREMATURE COMPLEXES Electronically Signed By: Reyna Nuñez 27-Apr-2017 23:08:31
[2017-04-26 03:50] LABS: % IMMATURE GRANULYOCYTES 0.3 % (0.0-1.1); ABSOLUTE IMMATURE GRANULOCYTES 0.02 10^3/uL (0.00-0.10); ADD DIFF? NO; ADD MORPH? NO; ADD SCAN? NO; ATYPICAL LYMPHOCYTE FLAG 0 (0-99); FRAGMENT RBC FLAG 0 (0-99); HEMATOCRIT 38.9 % (38.0-47.0); HEMOGLOBIN 13.3 g/dL (12.6-16.3); LEFT SHIFT FLG 0 (0-99); LIPEMIA HEMOLYSIS FLAG 90 (0-99); MEAN CELL HEMOGLOBIN 28.1 pg (27.9-34.1); MEAN CELL HEMOGLOBIN CONCENTR. 34.2 g/dL (32.4-36.7); MEAN CELL VOLUME 82.2 fL (81.5-99.8); MEAN PLATELET VOLUME 9.3 fL (8.7-11.7); PLATELET CLUMPS FLAG 0 (0-99); PLATELET COUNT 339 10^3/uL (150-400); RED BLOOD CELL COUNT 4.73 10^6/uL (4.18-5.33); RED CELL DISTRIBUTION WIDTH 14.7 % (11.5-15.2)
[2017-04-26 03:59] LABS: ANION GAP 13 mEq/L (8-16); CALCIUM 9.4 mg/dL (8.5-10.4); CARBON DIOXIDE 25 mEq/l (22-31); CHLORIDE 101 mEq/L (97-110); CREATININE 0.6 mg/dL (0.6-1.0); GLOMERULAR FILTRATION RATE > 60; GLUCOSE 152 mg/dL (70-100); SODIUM 139 mEq/L (134-144)
[2017-04-26] MEDS ORDERED: NITROGLYCERIN 0.4 MG BTL SL PRN (04:06)
[2017-04-26] MEDS ORDERED: MBX SOLN 30 ML BOTTLE PO PRN (04:06)
[2017-04-26 04:11] LABS: CREATINE KINASE-MB FRACTION 2.96 ng/mL (0.00-3.19); TROPONIN I < 0.012 ng/mL (0.000-0.034)
--- NOTE | 2017-04-26 05:02 | HOSPPROG ---
Hospitalist Progress Note Assessment/Plan: Hospitalist Night Float Note Notified by RN patient developed sudden onset substernal chest pain, anxiety, tremor. Patient c/o sharp and burning type chest pressure/pain, nonpleuritic in nature. Patient reports hx of GERD and chronic noncardiac chest pain 2/2 fibromyalgia. Patient reports today's pain feels quite different. Patient without history of pre-operative stress testing and has been > 10 years. no fhx. patient arrived to neuro floor s/p T7-S1 fusion revision. Gen - NAD. patient is anxious and lays quietly in bed appears to be increasingly somnolent and falling asleep. daughter at bedside. CV - tachycardic 90s. regular. no m/r/g. REsp - diminshed bases with decreased inspiratory effort. GI - + BS soft nttp. - no suprapubic ttp. Neuro - limited 2/2 postop status grossly normal. generalized weakness as patient is falling asleep but strength symmetric. moves all distal extremities while laying in bed. MSK - generalized weakness. as above. EKG reviewed. sinus tach 100s with artifact. no acute ST changes. no comparison ekg available. trop negative. DDx - lower suspicion for PE or ACS. suspect component of reflux vs fibromyalgia vs anxiety. Patient sx improved after 2 doses of morphine. patient previously received ppi and h2 gustavo. ativan available prn and ntg added. will trend troponin. Jose De Jesus Guzman with neurology updated. -- Maribel Luke MD. Objective: Vital Signs Temp Pulse Resp BP Pulse Ox 36.9 C 97 22 H 151/104 H 100 04/26/17 03:00 04/26/17 03:00 04/26/17 03:00 04/26/17 03:00 04/26/17 03:00 Microbiology 04/25/17 17:12 Mycobacterial Smear (KING) - Final Back - Eswab Mycobacterial Culture - Final 04/25/17 17:11 Mycobacterial Smear (KING) - Final Back - Eswab Mycobacterial Culture - Final 04/25/17 17:10 Mycobacterial Smear (KING) - Final Back - Eswab Mycobacterial Culture - Final Laboratory Results 04/26/17 03:40 04/26/17 03:40 04/24/17 04/25/17 04/26/17 05:59 05:59 05:59 Intake Total 1999 1750 2800 Output Total 300 Balance 1999 1750 0690 ICD10 Worksheet Patient Problems: Problems Problem Status Onset Lumbar stenosis Acute
--- NOTE | 2017-04-26 05:11 | GOP ---
[f rep st] OPERATIVE REPORT DATE OF OPERATION: 04/25/2017 SURGEON: Dragan Macdonald MD NEUROSURGEON: Dragan Macdonald MD COLD FOOD PACKER: ELINOR Hernandez ANESTHESIA: General endotracheal. PREOPERATIVE DIAGNOSIS: T10 fracture/hardware failure, status post prior T10 through L5 instrumentat ion and fusion. Progressive kyphotic deformity. High risk surgical candidate. POSTOPERATIVE DIAGNOSIS: T10 fracture/hardware failure, status post prior T10 through L5 instrumenta tion and fusion. Progressive kyphotic deformity. High risk surgical candidate. PROCEDURE PERFORMED: Removal of posterior segmental (pedicle screw and axle device) fixation from T1 0 through L5 with re-instrumentation and placement of new pedicle screws at T7, T8, and T9 bilaterall y, with a redo instrumentation and posterior lateral fusion from T7 through L5 using bone morphogenic protein, morselized autograft and morselized allograft. Use of intraoperative microscopy, fluorosco py and computer volumetric stereotactic navigation with intraoperative neurophysiologic testing. FINDINGS: ESTIMATED BLOOD LOSS: 150 cc. INDICATIONS: The patient is a 66-year-old woman who underwent a recent extensive decompression and s tabilization/instrumentation and fusion from T10 through L5, who suffered a T10 fracture and kyphosis with progressive kyphotic deformity on multiple x-rays. She presents now for removal, and re-instru mentation and extension of the fusion rostrally. DESCRIPTION OF PROCEDURE: After informed consent was obtained, the patient was taken to the operatin g room and placed in the prone position on the Kennedy table. The lumbosacral area was prepped and d raped in sterile fashion. After fluoroscopic localization of the correct levels, the prior incision was carefully opened from T10 through L5 and extended up to the T7 level. The incision was carried d own to the fascial layer with the monopolar electrocautery and a subperiosteal dissection was then cr eated along the spinous processes and lamina bilaterally. There was definitely some serosanguineous fluid but not grossly purulent. Multiple cultures including tissue were taken and sent for routine a erobic, anaerobic, and tissue cultures. An effort was made to preserve the posterolateral fusion mas s, but anything free floating was removed. After carefully dissecting out the area and removing the T10 pedicle screws, which were loose, every single other pedicle screw was tested and noted to be dominik sonably solid, although the patient clearly had very soft bone. I was worried that removing and repl acing more screws would just cause more problems and difficulty with bone screw purchase. The O-arm neuronavigational system was brought in and 3-D reconstructed images obtained and sent to the [facility] station. Using computer volumetric stereotactic navigation, pedicle screws were placed at T7, T8, a nd T9 bilaterally. Each individual screw was tested neurophysiologically with monopolar electrostimu lation and interpretation of the potentials by the surgeon. The O-arm neuronavigational system was t hen utilized to verify good position radiographically of the newly inserted screws. Rods were then contoured and placed and secured from T7 through L5 with minimal tension on the screws . The goal was to hopefully hold her in place and prevent progressive kyphotic deformity. I felt th at if I placed any amount of extension on the thoracolumbar construct, the screws would simply pull o ut and she would have more fractures. All the locking caps were secured, after verifying good positi oning radiographically. A redo decortication was then performed from any bone exposed from T7 down t o L5, and new bone morphogenic protein along with morselized autograft and morselized allograft was p laced out laterally for a posterolateral fusion from T7 through L5. A drain was then placed. The king bcutaneous and intramuscular tissues were re-infiltrated with local anesthesia, and the wound was francois sed in a layered fashion using interrupted Vicryl sutures followed by sadia in the skin. COMPLICATIONS: None. DISPOSITION: The patient is currently in the process of being repositioned for extubation. /[id number]/MODL
[2017-04-26] MEDS: HYDROCODONE/APAP 5/325 TAB PO PRN ×3 (06:23→19:53)
[2017-04-26] MEDS: ACETAMINOPHEN 500 MG TAB PO SCH ×3 (06:25→20:58)
[2017-04-26] MEDS ORDERED: VANCOMYCIN 1.25 GM in D5W 250 ML IV ONE (08:00)
--- NOTE | 2017-04-26 08:15 | NEUSURGPN ---
Assessment/Plan: Assessment: 66 yo F sp T7-S1 fusion revision POD#1 Plan: Chest pain - being worked up by hospitalists - tachycardia on EKG. Serial troponins being checked. Appreciate hospitalists assisting in the care of this patient. Pain management TLSO brace to be fit - plan for bedrest until brace fit Will need post op xrays once ambulatory Continue montoya due to bedrest JPx 2 intraoperative cultures sent, keep on vanco/maxipime for now per Dr Lenz please call with neuro changes D/w Dr Lenz Subjective: Pt resting in bed, c/o chest pain. Family at bedside. Objective: AAOx3 NAD VSS stable overall but elevated BP MAEx4 Motor 5/5 BLE +LT Montoya in place JPx2 productive Urinary Catheter in Place: Yes Urinary Catheter Indication: Surgical Requirement - Physician Discussed Patient with : Torres Neurosurgery Physical Exam - Vitals, I&O, Labs I and O 04/25/17 04/26/17 04/27/17 05:59 05:59 05:59 Intake Total 1750 3050 Output Total 1130 Balance 1750 1920 Weight 90.718 kg Intake: Oral (ml) 1750 250 IV Intake (ml) 2800 Output: Urine (ml) 800 Catheter 650 Toilet 150 Estimated Blood Loss (ml) 150 BAKARI Drain Output (ml) 180 #1 Left Back 120 #2 Right Back 60 Other: Intake Quantity No: NPO Sufficient Number of Voids Toilet 1 Number of Stools Toilet 1 Microbiology 04/25/17 17:12 Mycobacterial Smear (KING) - Final Back - Eswab Mycobacterial Culture - Final 04/25/17 17:11 Mycobacterial Smear (KING) - Final Back - Eswab Mycobacterial Culture - Final 04/25/17 17:10 Mycobacterial Smear (KING) - Final Back - Eswab Mycobacterial Culture - Final Vital Signs Temp Pulse Resp BP Pulse Ox 36.7 C 101 H 15 160/103 H 100 04/26/17 07:35 04/26/17 07:35 04/26/17 07:35 04/26/17 07:35 04/26/17 07:35 Laboratory Results 04/26/17 03:40 04/26/17 03:40 ICD10 Worksheet Patient Problems: Problems Problem Status Onset Lumbar stenosis Acute
[2017-04-26] MEDS: CEFEPIME HCL 2 GM in D5W 100 ML IV SCH ×2 (08:24→19:53)
--- NOTE | 2017-04-26 09:29 | HOSPPROG ---
Hospitalist Progress Note Assessment/Plan: Patient is a 66-year-old female who came to the emergency room for persistent back pain. The plan is for her to have surgery on April 25. It is felt that the patient's hardware is in malposition. Back pain status post revision of T7-S1 -POD #1 *chest pain -trop x 2 negative -reviewed her EKG which showed sinus tachycardia/ no evidence of ischemia -pain resolved w morphine -family shares the pain she had was similar to her fibromyalgia pain * hypertension -home meds resumed, p.r.n. hydralazine ordered for systolic greater than 160 -bp stable * GERD -Protonix * restless leg syndrome -no complaints * DVT prophylaxis: per neurosurgery team Subjective: Phoebe is sleepy and not c/o pain when I evaluated her. Objective: Vital Signs Temp Pulse Resp BP Pulse Ox 36.7 C 101 H 15 160/103 H 100 04/26/17 07:35 04/26/17 07:35 04/26/17 07:35 04/26/17 07:35 04/26/17 07:35 Microbiology 04/25/17 17:24 Gram Stain - Final Back - Tissue 04/25/17 17:12 Gram Stain - Final Back - Eswab 04/25/17 17:11 Gram Stain - Final Back - Eswab 04/25/17 17:10 Gram Stain - Final Back - Eswab 04/25/17 17:12 Mycobacterial Smear (KING) - Final Back - Eswab Mycobacterial Culture - Final 04/25/17 17:11 Mycobacterial Smear (KING) - Final Back - Eswab Mycobacterial Culture - Final 04/25/17 17:10 Mycobacterial Smear (KING) - Final Back - Eswab Mycobacterial Culture - Final Laboratory Results 04/26/17 03:40 04/26/17 03:40 04/25/17 04/26/17 04/27/17 05:59 05:59 05:59 Intake Total 1750 3050 Output Total 1130 Balance 1750 1920 - Physical Exam Constitutional: obese Eyes: PERRL Ears, Nose, Mouth, Throat: hearing normal Cardiovascular: regular rate and rhythym Respiratory: no respiratory distress, reduced air movement (bibasilar) Skin: other (warm has smith drains w bloody drainage) Musculoskeletal: generalized weakness Neurologic: AAOx3 (sleepy) Psychiatric: interacting appropriately, not encephalopathic ICD10 Worksheet Patient Problems: Problems Problem Status Onset Lumbar stenosis Acute
[2017-04-26] MEDS: SIMETHICONE 80 MG TAB CHEW PO SCH ×4 (09:37→20:52)
[2017-04-26] MEDS: FAMOTIDINE 20 MG TAB PO SCH ×2 (09:39→20:59)
[2017-04-26] MEDS: DULoxetine 60 MG CAP PO SCH (09:39)
[2017-04-26] MEDS: busPIRone 5 MG TAB PO SCH ×2 (09:39→20:58)
[2017-04-26] MEDS: METHOCARBAMOL 750 MG TAB PO PRN ×2 (09:40→17:05)
[2017-04-26] MEDS: SENNOSIDES/DOCUSATE SODIUM TAB PO SCH ×2 (09:40→21:03)
[2017-04-26] MEDS: SPIRONOLACTONE 25 MG TAB PO SCH (09:41)
[2017-04-26] MEDS: LOSARTAN POTASSIUM 50 MG TAB PO SCH (09:42)
[2017-04-26] MEDS: ENOXAPARIN 40 MG/0.4 ML SYR SC SCH (09:48)
[2017-04-26] MEDS: MUPIROCIN 2% 22 GM OINT TP SCH ×2 (09:52→21:02)
[2017-04-26] MEDS: PANTOPRAZOLE SODIUM 40 MG TAB PO SCH ×2 (09:53→21:02)
--- NOTE | 2017-04-26 13:59 | ASMTCMCOM ---
CM Note CM Note Notes: Pt did have T7-S1 fusion revision yesterday; PT/OT evals pending. Pt able to return to [facility] or home depending on progress. CM to follow. Date Signed: 04/26/2017 01:59 PM Electronically Signed By:JUNIE Sterling
[2017-04-26] MEDS: NS W/ 20 KCl/L 1,000 ML IV SCH (14:25)
[2017-04-26] MEDS: MONTELUKAST SODIUM 10 MG TAB PO SCH (21:01)
[2017-04-26] MEDS: VANCOMYCIN 1.25 GM in D5W 250 ML IV SCH (21:04)
[2017-04-26] MEDS: DIAZEPAM 5 MG TAB PO PRN (22:00)
[2017-04-27] MEDS: HYDROCODONE/APAP 5/325 TAB PO PRN ×2 (01:59→10:13)
[2017-04-27] MEDS: ACETAMINOPHEN 500 MG TAB PO SCH ×3 (04:07→20:44)
[2017-04-27] MEDS: oxyCODONE IR 5 MG TAB PO PRN ×2 (05:52→19:32)
[2017-04-27] MEDS: METHOCARBAMOL 750 MG TAB PO PRN ×2 (05:53→13:26)
--- NOTE | 2017-04-27 07:54 | SOAPPROG ---
SOAP Progress Note Assessment/Plan: Assessment: 66 yo F sp T7-S1 fusion revision POD#2. Doing well this AM Plan: Chest pain yesterday -Troponins negative. No chest pain today. Pain management TLSO brace to be fit - plan for bedrest until brace fit Will need post op xrays once ambulatory Continue montoya due to bedrest JPx 2 intraoperative cultures sent, keep on vanco/maxipime for now per Dr Lenz please call with neuro changes 04/27/17 07:50 04/27/17 07:55 Subjective: lying in bed, comfortable. Had episode of confusion last night and she sat up in bed which set off the bed alarm. Daughter was able to keep her on the bed until staff could lay her back down. No new issues arose from that. Doing well this AM. Denies new pain, weakness or paresthesias Objective: Vital Signs Temp Pulse Resp BP Pulse Ox 36.4 C 95 16 136/88 H 98 04/27/17 07:31 04/27/17 07:31 04/27/17 07:31 04/27/17 07:31 04/27/17 07:31 Microbiology 04/25/17 17:24 Mycobacterial Smear (KING) - Final Back - Tissue 04/25/17 17:10 Gram Stain - Final Back - Eswab 04/25/17 17:12 Gram Stain - Final Back - Eswab 04/25/17 17:11 Gram Stain - Final Back - Eswab 04/25/17 17:24 Gram Stain - Final Back - Tissue Laboratory Results 04/26/17 03:40 04/26/17 03:40 04/26/17 04/27/17 04/28/17 05:59 05:59 05:59 Intake Total 3050 1850 Output Total 1130 4525 Balance 1920 -1665 Neuro: THOMAS, Sens +LT follows commands JPleft: 90ml BAKARI right: 25ml gram stain negative cults neg so far ICD10 Worksheet Patient Problems: Problems Problem Status Onset Lumbar stenosis Acute
[2017-04-27] MEDS: SIMETHICONE 80 MG TAB CHEW PO SCH ×4 (08:39→20:44)
[2017-04-27] MEDS: busPIRone 5 MG TAB PO SCH ×2 (10:11→20:44)
[2017-04-27] MEDS: DULoxetine 60 MG CAP PO SCH (10:11)
[2017-04-27] MEDS: FAMOTIDINE 20 MG TAB PO SCH ×2 (10:12→20:43)
[2017-04-27] MEDS: MUPIROCIN 2% 22 GM OINT TP SCH ×2 (10:12→20:50)
[2017-04-27] MEDS: PANTOPRAZOLE SODIUM 40 MG TAB PO SCH ×2 (10:12→20:44)
[2017-04-27] MEDS: SENNOSIDES/DOCUSATE SODIUM TAB PO SCH ×2 (10:13→20:44)
[2017-04-27] MEDS: VANCOMYCIN 1.25 GM in D5W 250 ML IV SCH ×2 (10:13→21:34)
[2017-04-27] MEDS: LOSARTAN POTASSIUM 50 MG TAB PO SCH (10:20)
[2017-04-27] MEDS: ENOXAPARIN 40 MG/0.4 ML SYR SC SCH (10:21)
[2017-04-27] MEDS: SPIRONOLACTONE 25 MG TAB PO SCH (10:21)
--- NOTE | 2017-04-27 13:15 | HOSPPROG ---
Hospitalist Progress Note Assessment/Plan: Patient is a 66-year-old female who came to the emergency room for persistent back pain. First encounter, chart reviewed. Back pain status post revision of T7-S1 -POD #2 -awaiting brace -PT/OT *chest pain -trop x 2 negative -resolved -pain she had was similar to her fibromyalgia pain * hypertension -home meds resumed, p.r.n. 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 No other issues. Objective: Vital Signs Temp Pulse Resp BP Pulse Ox 36.8 C 97 16 140/82 H 96 04/27/17 11:27 04/27/17 11:27 04/27/17 11:27 04/27/17 11:27 04/27/17 11:27 Microbiology 04/25/17 17:24 Mycobacterial Smear (KING) - Final Back - Tissue 04/25/17 17:10 Gram Stain - Final Back - Eswab 04/25/17 17:12 Gram Stain - Final Back - Eswab 04/25/17 17:11 Gram Stain - Final Back - Eswab 04/25/17 17:24 Gram Stain - Final Back - Tissue Laboratory Results 04/26/17 03:40 04/26/17 03:40 04/26/17 04/27/17 04/28/17 05:59 05:59 05:59 Intake Total 3050 1850 Output Total 1131 1189 690 Balance 7827 -0135 -444 - Physical Exam Constitutional: chronically ill appearing, obese, uncomfortable Eyes: PERRL, anicteric sclera, EOMI Ears, Nose, Mouth, Throat: moist mucous membranes, hearing normal, ears appear normal Cardiovascular: regular rate and rhythym, No JVD, No edema Respiratory: no respiratory distress, no rales or rhonchi, reduced air movement Gastrointestinal: No tenderness, No ascites, No guarding Skin: warm, normal color, No erythema Musculoskeletal: joint tenderness, pain with ROM, generalized weakness Psychiatric: not anxious, not encephalopathic, poor insight, poor judgement ICD10 Worksheet Patient Problems: Problems Problem Status Onset Lumbar stenosis Acute
[2017-04-27] MEDS: DIAZEPAM 5 MG TAB PO PRN (20:44)
[2017-04-27] MEDS: MONTELUKAST SODIUM 10 MG TAB PO SCH (20:44)
[2017-04-28] MEDS: METHOCARBAMOL 750 MG TAB PO PRN ×3 (01:48→22:41)
[2017-04-28] MEDS: oxyCODONE IR 5 MG TAB PO PRN ×4 (01:48→22:41)
[2017-04-28] MEDS: ACETAMINOPHEN 500 MG TAB PO SCH ×3 (05:40→22:14)
[2017-04-28] MEDS: SPIRONOLACTONE 25 MG TAB PO SCH (09:10)
[2017-04-28] MEDS: ENOXAPARIN 40 MG/0.4 ML SYR SC SCH (09:10)
[2017-04-28] MEDS: DULoxetine 60 MG CAP PO SCH (09:11)
[2017-04-28] MEDS: LOSARTAN POTASSIUM 50 MG TAB PO SCH (09:11)
[2017-04-28] MEDS: SENNOSIDES/DOCUSATE SODIUM TAB PO SCH ×2 (09:11→22:13)
[2017-04-28] MEDS: busPIRone 5 MG TAB PO SCH ×2 (09:11→22:13)
[2017-04-28] MEDS: PANTOPRAZOLE SODIUM 40 MG TAB PO SCH ×2 (09:11→22:15)
[2017-04-28] MEDS: SIMETHICONE 80 MG TAB CHEW PO SCH ×4 (09:12→22:11)
[2017-04-28] MEDS: FAMOTIDINE 20 MG TAB PO SCH ×2 (09:12→22:14)
[2017-04-28] MEDS: MUPIROCIN 2% 22 GM OINT TP SCH ×2 (09:21→22:25)
[2017-04-28] MEDS: VANCOMYCIN 1.25 GM in D5W 250 ML IV SCH ×2 (11:12→22:26)
--- NOTE | 2017-04-28 11:35 | NEUSURGPN ---
Assessment/Plan: Assessment/Plan: Assessment: 66 yo F sp T7-S1 fusion revision POD#2 Plan: Chest pain - being worked up by hospitalists - so far workup negative Pain management TLSO brace to be fit - plan for bedrest until brace fit Will need post op xrays once ambulatory JPx 2 intraoperative cultures sent, keep on vanco/maxipime for now per Dr Lenz please call with neuro changes D/w Dr Lenz Subjective: Pt resting in chair with brace on. She is somnolent but did just get up to the chair, to the bathroom and is tired from this. She had some numbness in her left foot yesterday that was painful but is better today. Tolerating brace. Objective: AAOx3 NAD VSS stable overall but elevated BP MAEx4 Motor 5/5 BLE +LT JPx2 productive - Physician Discussed Patient with : Torres Neurosurgery Physical Exam - Vitals, I&O, Labs I and O 04/27/17 04/28/17 04/29/17 05:59 05:59 05:59 Intake Total 1850 300 Output Total 3515 2290 Balance -1664 Intake: Oral (ml) 1500 300 IV Infused (ml) 350 Cefepime HCl 2 gm In D5w 100 100 ml @ 200 mls/hr IV Q12H LORENE Rx#:[id number] Vancomycin 1.25 gm In D5w 250 250 ml @ 166.667 mls/hr IV ONCE ONE Rx#: [id number] Output: Urine (ml) 3400 2150 Catheter 3400 1550 Toilet 600 BAKARI Drain Output (ml) 115 140 #1 Left Back 90 80 #2 Right Back 25 60 Other: Intake Quantity Yes Yes Sufficient Number of Voids Toilet 1 Microbiology 04/25/17 17:24 Gram Stain - Final Back - Tissue 04/25/17 17:12 Gram Stain - Final Back - Eswab 04/25/17 17:11 Gram Stain - Final Back - Eswab 04/25/17 17:10 Gram Stain - Final Back - Eswab Vital Signs Temp Pulse Resp BP Pulse Ox 36.4 C 104 H 18 139/86 H 92 04/28/17 07:43 04/28/17 07:43 04/28/17 07:43 04/28/17 09:11 04/28/17 07:43 Laboratory Results 04/26/17 03:40 04/26/17 03:40 ICD10 Worksheet Patient Problems: Problems Problem Status Onset Lumbar stenosis Acute
[2017-04-28 14:09] LABS: CREATININE 0.6 mg/dL (0.6-1.0); GLOMERULAR FILTRATION RATE > 60
--- NOTE | 2017-04-28 14:40 | HOSPPROG ---
Hospitalist Progress Note Assessment/Plan: Patient is a 66-year-old female who came to the emergency room for persistent back pain. Back pain status post revision of T7-S1 -POD #3 -TSLO -PT/OT *chest pain -trop x 2 negative -resolved -pain she had was similar to her fibromyalgia pain * hypertension -home meds resumed, p.r.n. 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 Feels well. Brace is helping. Objective: Vital Signs Temp Pulse Resp BP Pulse Ox 36.6 C 92 16 135/93 H 93 04/28/17 12:00 04/28/17 12:00 04/28/17 12:00 04/28/17 12:00 04/28/17 12:00 Microbiology 04/25/17 17:24 Gram Stain - Final Back - Tissue 04/25/17 17:12 Gram Stain - Final Back - Eswab 04/25/17 17:11 Gram Stain - Final Back - Eswab 04/25/17 17:10 Gram Stain - Final Back - Eswab Laboratory Results 04/26/17 03:40 04/28/17 09:28 04/27/17 04/28/17 04/29/17 05:59 05:59 05:59 Intake Total 1850 300 250 Output Total 3515 2290 Balance -1664 250 - Physical Exam Constitutional: appears nourished, chronically ill appearing, obese Eyes: PERRL, anicteric sclera, EOMI Ears, Nose, Mouth, Throat: moist mucous membranes, hearing normal, ears appear normal Cardiovascular: No JVD, No edema Respiratory: no respiratory distress, reduced air movement Gastrointestinal: No tenderness, No ascites, No distension Skin: warm, normal color Musculoskeletal: pain with ROM, muscular tenderness, generalized weakness Neurologic: AAOx3 Psychiatric: not anxious, not encephalopathic, thought process linear ICD10 Worksheet Patient Problems: Problems Problem Status Onset Lumbar stenosis Acute
[2017-04-28] MEDS: MONTELUKAST SODIUM 10 MG TAB PO SCH (22:15)
[2017-04-29] MEDS: DIAZEPAM 5 MG TAB PO PRN (00:48)
[2017-04-29 05:30] LABS: CREATININE 0.6 mg/dL (0.6-1.0); GLOMERULAR FILTRATION RATE > 60
[2017-04-29] MEDS: ACETAMINOPHEN 500 MG TAB PO SCH ×3 (06:18→22:07)
[2017-04-29] MEDS: METHOCARBAMOL 750 MG TAB PO PRN ×2 (07:09→15:12)
[2017-04-29] MEDS: ENOXAPARIN 40 MG/0.4 ML SYR SC SCH (08:34)
[2017-04-29] MEDS: busPIRone 5 MG TAB PO SCH ×2 (08:34→22:08)
[2017-04-29] MEDS: PANTOPRAZOLE SODIUM 40 MG TAB PO SCH ×2 (08:35→22:08)
[2017-04-29] MEDS: FAMOTIDINE 20 MG TAB PO SCH ×2 (08:35→22:06)
[2017-04-29] MEDS: DULoxetine 60 MG CAP PO SCH (08:35)
[2017-04-29] MEDS: LOSARTAN POTASSIUM 50 MG TAB PO SCH (08:35)
[2017-04-29] MEDS: SIMETHICONE 80 MG TAB CHEW PO SCH ×4 (08:35→22:06)
[2017-04-29] MEDS: SPIRONOLACTONE 25 MG TAB PO SCH (08:35)
[2017-04-29] MEDS: SENNOSIDES/DOCUSATE SODIUM TAB PO SCH ×2 (08:36→22:07)
[2017-04-29] MEDS: MUPIROCIN 2% 22 GM OINT TP SCH ×2 (08:36→23:59)
[2017-04-29] MEDS: oxyCODONE IR 5 MG TAB PO PRN (09:55)
[2017-04-29] MEDS: VANCOMYCIN 1.25 GM in D5W 250 ML IV SCH ×2 (09:59→22:05)
--- NOTE | 2017-04-29 11:33 | HOSPPROG ---
Hospitalist Progress Note Assessment/Plan: Patient is a 66-year-old female who came to the emergency room for persistent back pain. Back pain status post revision of T7-S1 -POD #4 -TSLO pt says is too big -causing pain -PT/OT *Confusion -mild -family says normal post op -recovers quickly -multifactorial mostly med related *chest pain -trop x 2 negative -resolved -pain she had was similar to her fibromyalgia pain * hypertension -home meds resumed, p.r.n. 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 Pain stable. Brace causing pain. Objective: Vital Signs Temp Pulse Resp BP Pulse Ox 36.7 C 96 16 166/73 H 95 04/29/17 08:00 04/29/17 08:00 04/29/17 08:00 04/29/17 08:35 04/29/17 08:00 Microbiology 04/25/17 17:24 Gram Stain - Final Back - Tissue 04/25/17 17:12 Gram Stain - Final Back - Eswab 04/25/17 17:11 Gram Stain - Final Back - Eswab 04/25/17 17:10 Gram Stain - Final Back - Eswab Laboratory Results 04/26/17 03:40 04/29/17 04:50 04/28/17 04/29/17 04/30/17 05:59 05:59 05:59 Intake Total 300 1040 Output Total 2290 95 Balance -1989 945 - Physical Exam Constitutional: obese, uncomfortable Eyes: PERRL, anicteric sclera Ears, Nose, Mouth, Throat: moist mucous membranes, hearing normal Cardiovascular: No JVD, No edema Respiratory: no respiratory distress, reduced air movement Gastrointestinal: normoactive bowel sounds, No tenderness, No ascites Skin: warm, normal color, No erythema Musculoskeletal: no joint effusions, pain with ROM, generalized weakness Psychiatric: not anxious, not encephalopathic, poor memory ICD10 Worksheet Patient Problems: Problems Problem Status Onset Lumbar stenosis Acute
--- NOTE | 2017-04-29 12:00 | SOAPPROG ---
SOAP Progress Note Assessment/Plan: Assessment: 66 yo F sp T7-S1 fusion revision POD#3. Doing well this AM. No further chest pain. Plan: Replace IV, continue IV vanco. PT/OT DC Planning JPx 2 intraoperative cultures sent, keep on vanco/maxipime for now per Dr Lenz please call with neuro changes Subjective: out of bed in chair doing better today. Objective: Vital Signs Temp Pulse Resp BP Pulse Ox 36.7 C 96 16 166/73 H 95 04/29/17 08:00 04/29/17 08:00 04/29/17 08:00 04/29/17 08:35 04/29/17 08:00 Microbiology 04/25/17 17:24 Gram Stain - Final Back - Tissue 04/25/17 17:12 Gram Stain - Final Back - Eswab 04/25/17 17:11 Gram Stain - Final Back - Eswab 04/25/17 17:10 Gram Stain - Final Back - Eswab Laboratory Results 04/26/17 03:40 04/29/17 04:50 04/28/17 04/29/17 04/30/17 05:59 05:59 05:59 Intake Total 300 1040 Output Total 2290 95 Balance -1990 945 Neuro: THOMAS, sens +LT Dressing: CDI BAKARI 1:65 BAKARI 2:30 ICD10 Worksheet Patient Problems: Problems Problem Status Onset Lumbar stenosis Acute
--- NOTE | 2017-04-29 16:23 | ASMTCMCOM ---
CM Note CM Note Notes: Updates sent today to [facility] via [employer] in anticipation of return there. CM to follow. Date Signed: 04/29/2017 04:23 PM Electronically Signed By:JUNIE Sterling
[2017-04-29] MEDS: MONTELUKAST SODIUM 10 MG TAB PO SCH (22:08)
[2017-04-30] MEDS: traMADol 50 MG TAB PO PRN (03:21)
[2017-04-30] MEDS: ACETAMINOPHEN 500 MG TAB PO SCH (06:37)
[2017-04-30] MEDS: DULoxetine 60 MG CAP PO SCH (08:13)
[2017-04-30] MEDS: FAMOTIDINE 20 MG TAB PO SCH (08:14)
[2017-04-30] MEDS: METHOCARBAMOL 750 MG TAB PO PRN ×2 (08:15)
[2017-04-30] MEDS: busPIRone 5 MG TAB PO SCH (08:15)
[2017-04-30] MEDS: SIMETHICONE 80 MG TAB CHEW PO SCH (08:15)
[2017-04-30] MEDS: LOSARTAN POTASSIUM 50 MG TAB PO SCH (08:15)
[2017-04-30] MEDS: SPIRONOLACTONE 25 MG TAB PO SCH (08:15)
[2017-04-30] MEDS: SENNOSIDES/DOCUSATE SODIUM TAB PO SCH (08:15)
[2017-04-30] MEDS: PANTOPRAZOLE SODIUM 40 MG TAB PO SCH (08:16)
[2017-04-30] MEDS: VANCOMYCIN 1.25 GM in D5W 250 ML IV SCH (08:18)
[2017-04-30] MEDS: ENOXAPARIN 40 MG/0.4 ML SYR SC SCH (08:19)
[2017-04-30] MEDS: MUPIROCIN 2% 22 GM OINT TP SCH (08:19)
--- NOTE | 2017-04-30 08:37 | NEUSURGPN ---
Date of Surgery: 04/25/17 Post Op Day: 5 Assessment/Plan: Assessment: 66 yo F sp T7-S1 fusion revision POD #4 Plan: -doing well this AM. No further chest pain. -stop vanco today -continue with PT/OT -DC Planning -left BAKARI was accidently pulled last night, will leave right in place -intraoperative cultures sent-NGTD -per Dr Lenz we will dc Vanco today -PT/OT order -please call with neuro changes Subjective: Awake and alert. NAD. No vasquez/neck/chest/abd or gu complaints Objective: AAO x 3, PERRLA EOMI no droop CN 2-12 grossly intact THOMAS, sens +LT Dressing: CDI Neuro Check Frequency: per routine Urinary Catheter in Place: No - Physician Discussed Patient with : Torres Neurosurgery Physical Exam - Vitals, I&O, Labs I and O 04/29/17 04/30/17 05/01/17 05:59 05:59 05:59 Intake Total 1040 300 Output Total 95 130 Balance 945 170 Intake: Oral (ml) 790 300 IV Infused (ml) 250 Vancomycin 1.25 gm In D5w 250 250 ml @ 166.667 mls/hr IV Q12H LORENE Rx#: [id number] Output: Urine (ml) 0 Catheter 0 BAKARI Drain Output (ml) 95 130 #1 Left Back 65 105 #2 Right Back 30 25 Other: Intake Quantity Yes Yes Sufficient Number of Voids Catheter 1 1 Toilet 1 Microbiology 04/25/17 17:24 Gram Stain - Final Back - Tissue 04/25/17 17:12 Gram Stain - Final Back - Eswab 04/25/17 17:11 Gram Stain - Final Back - Eswab 04/25/17 17:10 Gram Stain - Final Back - Eswab Vital Signs Temp Pulse Resp BP Pulse Ox 36.4 C 106 H 17 139/82 H 98 04/30/17 02:55 04/30/17 02:55 04/30/17 02:55 04/30/17 08:15 04/30/17 02:55 Laboratory Results 04/26/17 03:40 04/29/17 04:50 ICD10 Worksheet Patient Problems: Problems Problem Status Onset Lumbar stenosis Acute
--- NOTE | 2017-04-30 08:54 | PDIAF ---
- Diagnosis Diagnosis: s/p T-L fusion Code Status: Full Code - Medication Management Discharge Medications: Medications to Continue on Transfer Acyclovir [Zovirax 400 mg (*)] 800 mg PO BID PRN 03/18/17 [Last Taken 3 Months Ago ~12/30/16] Albuterol [Proventil Inhaler HFA (*)] 2 puffs IH Q4H PRN 03/18/17 [Last Taken 1 Week Ago ~03/25/17] Albuterol [Proventil Neb] 3 ml IH QID PRN 03/18/17 [Last Taken 1 Week Ago ~03/25] DULoxetine [Cymbalta 60 MG (*)] 60 mg PO DAILY 03/18/17 [Last Taken 04/21/17] Gabapentin [Neurontin 300 MG (*)] 300 mg PO DAILY 03/18/17 [Last Taken 04/21/17] Gabapentin [Neurontin 300 MG (*)] 600 mg PO HS 03/18/17 [Last Taken 04/21/17] Losartan Potassium [Cozaar 50 mg (*)] 50 mg PO DAILY 03/18/17 [Last Taken ] Montelukast Sodium [Singulair 10 mg (*)] 10 mg PO HS 03/18/17 [Last Taken ] Pantoprazole Sodium [Protonix 40mg (*)] 40 mg PO BID 03/18/17 [Last Taken ] Spironolactone [Aldactone 25 MG (*)] 50 mg PO DAILY 03/18/17 [Last Taken 08:00] busPIRone [Buspar (*)] 7.5 mg PO BID 03/18/17 [Last Taken 04/21/17] rOPINIRole HCL [Requip 2mg (*)] 4 mg PO DAILY 03/18/17 [Last Taken 04/21/17] Mupirocin 2% [Bactroban 2% Nasal] 1 zhen TP BID 03/31/17 [Last Taken 04/21/17] Acetaminophen [Tylenol ES 500 mg (*)] 1,000 mg PO Q8HRS tab 04/07/17 [Last Taken 04/22/17 08:00] Diazepam [Valium 5 MG (*)] 5 mg PO BID PRN 15 Days #30 tab 04/07/17 [Last Taken 04/22/17] Methocarbamol [Robaxin 750 mg (*)] 750 mg PO QID PRN 30 Days #120 tab 04/07/17 [ Last Taken 04/22/17 08:00] Sennosides/Docusate Sodium [Senokot-S] 1 - 2 tab PO BID tab 04/07/17 [Last Taken 04/21/17] Polyethylene Glycol 3350 [Miralax 17 gm (*)] 17 gm PO TID PRN 04/22/17 [Last Taken 04/21/17] Simethicone [GAS-X] 125 mg PO ACHS 04/22/17 [Last Taken 04/21/17] rOPINIRole HCL [Requip 2mg (*)] 8 mg PO HS 04/22/17 [Last Taken 04/21/17] Enoxaparin [Lovenox 40 MG (*)] 40 mg SC DAILY #7 syr 04/30/17 [Last Taken Unknown] oxyCODONE IR [Oxycodone Ir (*)] 5 mg PO Q3HRS PRN tab 04/30/17 [Last Taken Unknown] Assisted Antibiotics: none Discharge Medications: Refer to the Discharge Home Medication list for PRN reason. PICC Care - Routine: N/A - Orders Services needed: Registered Nurse, Certified Pilot Plant Supervisor, Master Gusset Edger , Physical Therapy, Occupational Therapy Isolation Type: Contact Isolation Oxygen: to keep O2 sat above 90% Diet Recommendation: no restrictions on diet Diet Texture: Regular Texture Diet Tube feeding: n/a Equipment: call Office on Tuesday with BAKARI output for clearance for removal - Follow Up Care Current Providers and Referrals: NONE *PRIMARY CARE P,. [Primary Care Provider] - Dragan Macdonald MD [Medical Doctor] - (follow up in 2-3 weeks)
[2017-04-30 08:56] VITALS: BP 126/85; PULSE 99; RESP 16; TEMP 98; O2SAT 95
--- NOTE | 2017-04-30 10:29 | HOSPPROG ---
Hospitalist Progress Note Assessment/Plan: DIAGNOSES: -status post revision spine surgery, doing well, appears stable for discharge today or soon -hyperglycemia at admission; patient gives history of pre diabetes, reviewed with her to continue with diabetic diet and a efforts at weight loss, follow up with primary care over time -rib pain, persists, consistent with spine related etiology, nothing that sounds cardiac PLANS: Continue current care, discharge planning per Neurosurgery Glucose management as above Will review with Neurosurgery team SUBJECTIVE: Feels better today with less pain, pain reasonably controlled with Tylenol and Robaxin No fever symptoms No bowel or bladder problems OBJECTIVE Vitals reviewed: Stable without fever Cart Driver, my review: Exam: alert oriented lungs clear BSs heart regular abd soft nondistended nontender, bowel sounds present limbs warm, no edema iv site ok Objective: Vital Signs Temp Pulse Resp BP Pulse Ox 36.7 C 99 16 126/85 H 95 04/30/17 08:53 04/30/17 08:53 04/30/17 08:53 04/30/17 08:53 04/30/17 08:53 Microbiology 04/25/17 17:24 Gram Stain - Final Back - Tissue 04/25/17 17:12 Gram Stain - Final Back - Eswab 04/25/17 17:11 Gram Stain - Final Back - Eswab 04/25/17 17:10 Gram Stain - Final Back - Eswab Laboratory Results 04/26/17 03:40 04/29/17 04:50 04/29/17 04/30/17 05/01/17 06:59 06:59 06:59 Intake Total 1040 300 Output Total 95 130 Balance 945 170 ICD10 Worksheet Patient Problems: Problems Problem Status Onset Lumbar stenosis Acute
--- NOTE | 2017-04-30 12:34 | ASMTCMCOM ---
CM Note CM Note Notes: Pt medically stable for d/c to [facility]. Pt family requests to transport and Sherie hidalgo [facility] approves. Orders sent in [employer]. RN to call report. Date Signed: 04/30/2017 12:34 PM Electronically Signed By:JUNIE Sterling
--- NOTE | 2017-04-30 12:35 | ASDISCHSUM ---
Discharge Information Plan Status:SNF Medically Cleared to Leave: Discharge Date:04/30/2017 12:24 PM D/C Disposition:Custodial Facility ADT D/C Disposition:Custodial Facility Projected Discharge Date:04/28/2017 11:00 AM Transportation at D/C:Family Discharge Delay Reason: Follow-Up Date:04/28/2017 11:00 AM Discharge Slot: Final Diagnosis: Placement Information Referral Type:*Retirement/SNF Referral ID:[id number] Provider Name:[facility]//[facility] Address 1:[address] [place] [address] Address 2: City:[place] Selection Factors: State:[place] Patient Contact Information Contact Name:YEYO Relationship: Address:[address] [place] [address] Work Phone: City:[place] Alternate Phone: State/Zip Code:[place] [address] Email: Financial Information Financial Class: Primary Plan Desc:MEDICARE INPATIENT Primary Plan Number:[id number] Secondary Plan Desc:[employer]/MDR SUPPLEMENT Secondary Plan Number:[id number] Assessment Information [facility] CM Progress Note CM Note CM Note Notes: Pt admitted with back pain from [facility] where she was doing rehab after back surgery Mar 28. Plan is for pt to go back to surgery on Apr 25. Spoke w/Bridget at [facility] who said that pt was towards the end of her rehab (Apr 29 dc planned) and they are able to accept back at any time if need be. Met w/pt to discuss. She is hoping to go home where she lives w/ if possible but open to returning to [facility] if needed. They live in trailer in back of her daughters house. Pt has other daughter, Shanna, who pt says is the one to talk to regarding any dc planning. Pt reported that she has amnesia so won't remember what we talked about today. We discussed that we will see how she does after surgery and plan accordingly. CM will follow. Date Signed: 04/23/2017 04:47 PM Electronically Signed By:Aislinn Clark RN [facility] CM Progress Note CM Note CM Note Notes: Pt did have T7-S1 fusion revision yesterday; PT/OT evals pending. Pt able to return to [facility] or home depending on progress. CM to follow. Date Signed: 04/26/2017 01:59 PM Electronically Signed By:JUNIE Sterling [facility] CM Progress Note CM Note CM Note Notes: Updates sent today to [facility] via [employer] in anticipation of return there. CM to follow. Date Signed: 04/29/2017 04:23 PM Electronically Signed By:JUNIE Sterling [facility] CM Progress Note CM Note CM Note Notes: Pt medically stable for d/c to [facility]. Pt family requests to transport and Sherie hidalgo [facility] approves. Orders sent in [employer]. ZENA to call report. Date Signed: 04/30/2017 12:34 PM Electronically Signed By:JUNIE Sterling Intervention Information
== END 2017-04-30 12:24 | DRG 458 ==
LOC: F3N 13:49
PROVIDERS: ADMIT Neurological Surgery; ATTEND Neurological Surgery
DX: T84.226A Displacement of internal fixation device of vertebrae, initial encounter (principal); T84.296A Other mechanical complication of internal fixation device of vertebrae, initial encounter; I10 Essential (primary) hypertension; E66.9 Obesity, unspecified; F32.9 Major depressive disorder, single episode, unspecified; G25.81 Restless legs syndrome; K21.9 Gastro-esophageal reflux disease without esophagitis; M79.7 Fibromyalgia; R07.9 Chest pain, unspecified; R00.0 Tachycardia, unspecified; R73.03 Prediabetes; Z86.14 Personal history of Methicillin resistant Staphylococcus aureus infection
CPT/HCPCS: 97116-GP; 97162-GP; 97166-GO; 97530-GP; 97535-GO; C1713; C1762; G8978-GP-CK; G8979-GP-CI; G8987-GO-CK; G8988-GO-CI; J0171; J0690; J0692; J1100; J1170; J1650; J2001; J2250; J2274; J2405; J2704; J3010; J3370; J7060

== ENCOUNTER 2017-06-23 11:09 | Emergency (ER) | payer OTHER, MEDICARE ==
[2017-06-23 11:28] VITALS: O2SAT 95
[2017-06-23] MEDS ORDERED: NS 500 ML IV ONE (12:00)
--- NOTE | 2017-06-23 12:00 | EDPHY ---
H & P Time Seen by Provider: 06/23/17 11:51 HPI/ROS: CHIEF COMPLAINT: Weakness HISTORY OF PRESENT ILLNESS: Patient is a 58-year-old female who is status post T10 through S1 spinal surgery. She presents emergency department with new onset right upper extremity weakness that started at 2:30 a.m. yesterday while in the grocery store. She had difficulty picking up an item in the grocery store. She then felt as though she "scissor walked. "She had difficulty controlling her right leg. She states since the surgery she has had intermittent episodes with difficulty controlling her right leg but upper extremity symptoms are new. She still feels mildly weak in her right upper extremity. She has had no headache or neck pain. No numbness or tingling. No sensation changes. No difficulty with speech her understanding. She denies any recent fevers or chills. No new back pain. REVIEW OF SYSTEMS: My complete review of systems is negative except as mentioned in the HPI. Past Medical/Surgical History: Includes pulmonary embolus, atrial fibrillation, hypertension, asthma, depression Past surgical history: Spinal surgery, cholecystectomy, hysterectomy, appendectomy, pelvic floor surgery Social history: Patient is . She does not smoke Smoking Status: Never smoked Physical Exam: 36.4, 143/66, 99, 16, 95% on room air GENERAL: No acute distress, alert. Back brace in place HEENT: Eyes normal to inspection, normal pharynx, no signs of dehydration. NECK: No thyromegaly, no lymphadenopathy, supple. No spinal tenderness RESPIRATORY: Clear to auscultation bilaterally, no rales, rhonchi or wheezing. CVS: Regular rate and rhythm, no rubs, murmurs, or gallops. ABDOMEN: Soft, nontender, nondistended, no organomegaly. BACK: Normal to inspection, no CVA tenderness. SKIN: Normal color, no rash, warm, dry. No pallor. EXTREMITIES: No pedal edema, no calf tenderness, no Homans sign or cords, no joint swelling. NEURO/PSYCH: Higher functions: Alert and Oriented x3. Normal speech and cognition. Normal mood and affect. Cranial nerves: Normal as tested. Cerebellar: Normal as tested. Good finger to nose, good [id number]. Peripheral exam: Normal motor exam. Normal sensation. Normal reflexes. Constitutional: Initial Vital Signs Temperature (C) 36.4 C 06/23/17 11:24 Heart Rate 90 06/23/17 11:24 Respiratory Rate 16 06/23/17 11:24 Blood Pressure 143/66 H 06/23/17 11:24 O2 Sat (%) 95 06/23/17 11:24 O2 Delivery Mode Room Air Allergies/Adverse Reactions: cyanocobalamin (vitamin B12) Allergy (Unknown, Verified 06/23/17 11:16) Hives suture Allergy (Unknown, Verified 06/23/17 11:16) adhesive tape Allergy (Verified 06/23/17 11:16) Other-Enter Comments erythromycin base Allergy (Verified 06/23/17 11:16) Vomiting Iodinated Contrast- Oral and IV Dye Allergy (Verified 06/23/17 11:16) Swelling/neck,face,throat propoxyphene [From Darvocet-N] Allergy (Verified 06/23/17 11:16) Hives shellfish derived Allergy (Verified 06/23/17 11:16) Hives Sulfa (Sulfonamide Antibiotics) Allergy (Verified 06/23/17 11:16) Hives vicryl Allergy (Uncoded 06/23/17 11:16) Home Medications: Medication Instructions Recorded Acyclovir [Zovirax 400 mg (*)] 800 mg PO BID PRN 03/18/17 Albuterol [Proventil Inhaler HFA 2 puffs IH Q4H PRN 03/18/17 (*)] Albuterol [Proventil Neb] 3 ml IH QID PRN 03/18/17 DULoxetine [Cymbalta 60 MG (*)] 60 mg PO DAILY 03/18/17 Gabapentin [Neurontin 300 MG (*)] 300 mg PO DAILY 03/18/17 Gabapentin [Neurontin 300 MG (*)] 600 mg PO HS 03/18/17 Losartan Potassium [Cozaar 50 mg 50 mg PO DAILY 03/18/17 (*)] Montelukast Sodium [Singulair 10 10 mg PO HS 03/18/17 mg (*)] Pantoprazole Sodium [Protonix 40mg 40 mg PO BID 03/18/17 (*)] Spironolactone [Aldactone 25 MG 50 mg PO DAILY 03/18/17 (*)] busPIRone [Buspar (*)] 7.5 mg PO BID 03/18/17 rOPINIRole HCL [Requip 2mg (*)] 4 mg PO DAILY 03/18/17 Mupirocin 2% [Bactroban 2% Nasal] 1 zhen TP BID 03/31/17 Acetaminophen [Tylenol ES 500 mg 1,000 mg PO Q8HRS tab 04/07/17 (*)] Diazepam [Valium 5 MG (*)] 5 mg PO BID PRN 15 Days #30 tab 04/07/17 Methocarbamol [Robaxin 750 mg (*)] 750 mg PO QID PRN 30 Days #120 tab 04/07/17 Sennosides/Docusate Sodium 1 - 2 tab PO BID tab 04/07/17 [Senokot-S] Polyethylene Glycol 3350 [Miralax 17 gm PO TID PRN 04/22/17 17 gm (*)] Simethicone [GAS-X] 125 mg PO ACHS 04/22/17 rOPINIRole HCL [Requip 2mg (*)] 8 mg PO HS 04/22/17 oxyCODONE IR [Oxycodone Ir (*)] 5 mg PO Q3HRS PRN tab 04/30/17 Xarelto 06/23/17 Medical Decision Making - Diagnostics Imaging Results: Imaging Impressions Brain MRI 06/23/17 12:01 Impression: Mild periventricular and deep hemispheric white matter change which is nonspecific and can be seen with small vessel ischemic disease. No evidence for acute infarct. Mild generalized cerebral atrophy. Results called and discussed with Dr. Margie Dewey on 06/23/2017, 14:31. Cervical Spine MRI 06/23/17 12:01 Impression: Multilevel degenerative disk and degenerative joint disease in the cervical spine. The levels of more significant right neural foraminal narrowing are at C4-C5 and C5-C6. Please see detailed description by level above. Results called and discussed with Dr. Margie Dewey on June 23, 2017 at 1434 hours. ED Course/Re-evaluation: In the emergency department I discussed possible etiologies with the patient and . I answered all her questions. An IV was placed. Laboratory studies and imaging were ordered. I discussed the case with Dr. Lozano from neurosurgery. He will review the patient's record and call me back. EKG shows normal sinus rhythm, normal rate, normal axis, normal intervals. Ventricular trigeminy. There are no ST or T-wave abnormalities. CBC shows mild anemia. Chemistry panel is unremarkable. Urine is negative. MRI of the brain and cervical spine: Please refer the dictated report by the radiologist. I discussed the case with him. No acute disease noted. No CVA. I discussed the results with the patient. On recheck she was doing well. She was using her right upper extremity. She felt slightly stronger than when she arrived. She had no new complaints. No new focal neurologic deficits. I discussed the case with the hospitalist service. They felt the patient could be discharged with a negative MRI. I subsequently paged the neuro surgical service and discussed this with Dr. Lozano. He had me page the PANichelle. Nichelle contacted Dr. Macdonald who requested the patient undergo a thoracolumbar x- ray. If this shows the hardware is intact and there is no acute abnormality, she will be discharged. I gave patient warnings prior to leaving. She will return with worsening symptoms. Differential Diagnosis: My differential includes but is not limited to ischemic CVA, hemorrhagic CVA, dissection, aneurysm, cord compression, hematoma, infection - Data Points Laboratory Results: Laboratory Results 06/23/17 12:13 06/23/17 12:13 06/23/17 06/23/17 06/23/17 13:10 12:13 12:13 WBC RBC Hgb Hct MCV MCH MCHC RDW Plt Count MPV Neut % (Auto) Lymph % (Auto) [place] % (Auto) Eos % (Auto) Baso % (Auto) Nucleat RBC Rel Count Absolute Neuts (auto) Absolute Lymphs (auto) Absolute Monos (auto) Absolute Eos (auto) Absolute Basos (auto) Absolute Nucleated RBC Immature Gran % Immature Gran # PT 13.9 SEC SEC (12.0-15.0) INR 1.05 (0.83-1.16) APTT 29.8 SEC SEC (23.0-38.0) Sodium 139 mEq/L mEq/L (135-145) Potassium 5.1 mEq/L mEq/L (3.5-5.2) Chloride 100 mEq/L mEq/L (97-110) Carbon Dioxide 25 mEq/l mEq/l (22-31) Anion Gap 14 mEq/L mEq/L (8-16) BUN 16 mg/dL mg/dL (7-23) Creatinine 0.7 mg/dL mg/dL (0.6-1.0) Estimated GFR > 60 Glucose 103 mg/dL H mg/dL (70-100) Calcium 9.9 mg/dL mg/dL (8.5-10.4) Troponin I < 0.012 ng/mL ng/mL (0.000-0.034) Urine Color YELLOW Urine Appearance CLEAR Urine pH 6.0 (5.0-7.5) Ur Specific [place] 1.010 (1.002-1.030) Urine Protein NEGATIVE (NEGATIVE) Urine Ketones NEGATIVE (NEGATIVE) Urine Blood NEGATIVE (NEGATIVE) Urine Nitrate NEGATIVE (NEGATIVE) Urine Bilirubin NEGATIVE (NEGATIVE) Urine Urobilinogen NEGATIVE EU EU (0.2-1.0) Ur Leukocyte Esterase NEGATIVE (NEGATIVE) Urine RBC 1-3 /hpf /hpf (0-3) Urine WBC 1-3 /hpf /hpf (0-3) Ur Epithelial Cells TRACE /lpf /lpf (NONE-1+) Urine Mucus TRACE /lpf /lpf (NONE-1+) Urine Glucose NEGATIVE (NEGATIVE) 06/23/17 12:13 WBC 7.68 10^3/uL 10^3/uL (3.80-9.50) RBC 4.61 10^6/uL 10^6/uL (4.18-5.33) Hgb 11.3 g/dL L g/dL (12.6-16.3) Hct 36.3 % L % (38.0-47.0) MCV 78.7 fL L fL (81.5-99.8) MCH 24.5 pg L pg (27.9-34.1) MCHC 31.1 g/dL L g/dL (32.4-36.7) RDW 14.7 % % (11.5-15.2) Plt Count 378 10^3/uL 10^3/uL (150-400) MPV 9.2 fL fL (8.7-11.7) Neut % (Auto) 60.2 % % (39.3-74.2) Lymph % (Auto) 28.3 % % (15.0-45.0) [place] % (Auto) 7.7 % % (4.5-13.0) Eos % (Auto) 3.1 % % (0.6-7.6) Baso % (Auto) 0.4 % % (0.3-1.7) Nucleat RBC Rel Count 0.0 % % (0.0-0.2) Absolute Neuts (auto) 4.63 10^3/uL 10^3/uL (1.70-6.50) Absolute Lymphs (auto) 2.17 10^3/uL 10^3/uL (1.00-3.00) Absolute Monos (auto) 0.59 10^3/uL 10^3/uL (0.30-0.80) Absolute Eos (auto) 0.24 10^3/uL 10^3/uL (0.03-0.40) Absolute Basos (auto) 0.03 10^3/uL 10^3/uL (0.02-0.10) Absolute Nucleated RBC 0.00 10^3/uL 10^3/uL (0-0.01) Immature Gran % 0.3 % % (0.0-1.1) Immature Gran # 0.02 10^3/uL 10^3/uL (0.00-0.10) PT INR APTT Sodium Potassium Chloride Carbon Dioxide Anion Gap BUN Creatinine Estimated GFR Glucose Calcium Troponin I Urine Color Urine Appearance Urine pH Ur Specific [place] Urine Protein Urine Ketones Urine Blood Urine Nitrate Urine Bilirubin Urine Urobilinogen Ur Leukocyte Esterase Urine RBC Urine WBC Ur Epithelial Cells Urine Mucus Urine Glucose Medications Given: Discontinued Medications Sodium Chloride (Ns) 500 mls @ 500 mls/hr IV EDNOW ONE PRN Reason: Protocol Stop: 06/23/17 12:59 Last Admin: 06/23/17 12:17 Dose: 500 mls Departure - Departure Disposition: Home, Routine, Self-Care Clinical Impression: Weakness Condition: Good Instructions: Weakness (ED) Additional Instructions: Return with increasing weakness, numbness, headache, vomiting or any other concerns. Follow up with both your primary care physician and Neurosurgery. Referrals: MAXIMINO DUARTE [Primary Care Provider] - 2-3 days, call for appt.
[2017-06-23 12:33] LABS: PLATELET COUNT 378 10^3/uL (150-400)
--- NOTE | 2017-06-23 12:39 | CPEKG ---
Heart Rate: 89 RR Interval: 674 P-R Interval: 140 QRSD Interval: 90 QT Interval: 396 QTC Interval: 482 P Esopus: 46 QRS Esopus: 24 T Wave Esopus: -9 EKG Severity - ABNORMAL ECG - EKG Impression: SINUS RHYTHM EKG Impression: VENTRICULAR TRIGEMINY EKG Impression: BORDERLINE T ABNORMALITIES, INFERIOR LEADS Electronically Signed By: Margie Dewey 23-Jun-2017 15:10:42
[2017-06-23 12:47] LABS: INR 1.05 (0.83-1.16); PROTIME(PATIENT) 13.9 SEC (12.0-15.0)
[2017-06-23 15:32] VITALS: TEMP 98.4
[2017-06-23 16:50] VITALS: BP 159/107; PULSE 83; RESP 16
--- NOTE | 2017-06-23 21:43 | GCON ---
[f rep st] CONSULTATION EMERGENCY ROOM CONSULTATION PHYSICIANS: Dr. Prabha Tipton and Dr. Dragan Macdonald. CHIEF COMPLAINT: Right upper extremity and lower extremity weakness, difficulty with speech. HISTORY OF PRESENT ILLNESS: The patient is a known patient of Dr. Dragan Macdonald. She underwent a T10-S1 fusion on 04/01/2017, for severe lumbar scoliosis, DJD and stenosis. Unfortunately, she suffered a T10 compression fracture and underwent an extension of her fusion from T7-L5 with Dr. Macdonald on 04/25/2017. The patient had been home and doing well. She was at the grocery store yesterday. Between 1 p.m. and 1:30 p.m., she began to feel symptoms in which she described as right arm and leg weakness and loss of sensation in her right hand. She felt like she was "having a stroke." The patient denies any new back symptoms or other radicular symptoms other than the weakness she experienced in her right leg at that time. She does note that she had a terrible pain in her right SI joint that lasted approximately 5 minutes 3 days ago, but it is gone at this time. The patient takes Xarelto for atrial fibrillation. The patient feels that she is having trouble finding words. She feels that a tremor in her right hand has become worse over the course of the last month. Her tremor is present in her right hand. The patient presented to the emergency room for evaluation and is accompanied by her . REVIEW OF SYSTEMS: 10-point review of systems was performed and negative aside from what was mentioned in the HPI. PAST MEDICAL HISTORY: Pulmonary embolus, atrial fibrillation, hypertension, asthma and depression. PAST SURGICAL HISTORY: Spine surgery, cholecystectomy, hysterectomy, appendectomy, pelvic floor surgery. SOCIAL HISTORY: The patient is . She does not use nicotine products. She does not drink alcohol. Denies any illicit drug use. MEDICATIONS: Include acyclovir, albuterol, Cymbalta, Neurontin, Cozaar, Singulair, Protonix, Aldactone, BuSpar, Requip, Tylenol, Valium, Robaxin, Senokot, MiraLAX, oxycodone and Xarelto. ALLERGIES: Vitamin B12, Vicryl sutures, adhesive tape, erythromycin, oral and IV contrast, Darvocet, shellfish, sulfa. FAMILY HISTORY: The patient denies any family history related to her present condition. LABORATORY: White blood cell count 7.67, hemoglobin 11.3, hematocrit 36.3, platelets are 378. PT 13.9, INR 1.05, PTT 29.8. Sodium 139, potassium 5.1, BUN 16, creatinine 0.7, glucose 103. Urinalysis negative. MRI of the brain performed without contrast demonstrates a mild hemispheric white matter change which is nonspecific, can be seen with small vessel ischemic disease. There is no evidence of acute infarct. Mild generalized cerebral atrophy. MRI of cervical spine demonstrates multilevel degenerative disc disease with some right foraminal narrowing at C4-5 and C5-6. PHYSICAL EXAMINATION: VITAL SIGNS: 134/80, heart rate 85, respiratory rate is 18, oxygen saturation 95% on room air. Temperature is 36.9 degrees Celsius. The patient is in normal sinus rhythm. HEENT: Head: Normocephalic and atraumatic. Pupils are equal, round and reactive to light. EOM are intact. Full visual barajas by confrontation. RESPIRATORY/CARDIAC: Deferred. ABDOMEN: Deferred. GENITOURINARY/RECTAL: Deferred. NEUROLOGIC: The patient is awake and alert. Oriented to name, place, location, date, time. Memory is intact to immediate past and current events. Speech: There is no aphasia or dysphonia. Her speech is clear. Cranial nerves 2-12 are grossly intact. Motor : 5/5 strength in all muscle groups of the bilateral upper and lower extremities with the exception of right triceps being a 4+, right wrist extensors being 4+ and right intrinsics 5-. All other muscle groups are 5/5 including the deltoids, biceps, left triceps, brachioradialis, wrist flexion, left wrist extensors, bilingual instructor, intrinsic fingers on the left, iliopsoas, quadriceps , hamstrings, plantar flexion, dorsiflexion, EHL testing. Sensation is grossly intact to light touch throughout all dermatomal distributions and bilateral lower extremities. Reflexes: Biceps, triceps, brachioradialis, knee jerk and ankle jerk are 2+/4. Toes are downgoing bilaterally. Babinski are negative. No evidence of clonus. ASSESSMENT AND PLAN: The patient is a 66-year-old female with a history of a T7 to sacrum fusion with Dr. Macdonald on 04/25/2017. The patient was doing well home, recovering and began to experience some numbness and weakness in her right upper and lower extremities yesterday. Patient states these symptoms started approximately between 1 p.m. and 1:30 p.m. yesterday on 2017, while she was at the grocery store. MRI of the cervical spine demonstrates some mild foraminal narrowing at C4-5 and C5-6. Patient does have mild weakness in her right triceps, right wrist extensors and right intrinsics which could be deriving from the foraminal narrowing. The patient's MRI of the brain is negative. The emergency department has ruled out any concern for stroke. We will get an x-ray of her thoracolumbar spine. Medicine doctors have seen the patient and feel that she could be discharged home from their standpoint. There is no need to keep her in the hospital from a neurosurgery standpoint at this time. The patient will follow up with Dr. Macdonald regarding her cervical MRI findings as well as reviewing her thoracolumbar x- rays. Patient was seen and examined by myself and Dr Tipton. The patient was seen and examined by neurosurgical services in the Emergency Department today on 06/23/2017, at 12:15 p.m. /[id number]/MODL MTDD
== END 2017-06-23 16:49 | disposition home or self-care (01) ==
DX: R53.1 Weakness (principal); E86.9 Volume depletion, unspecified; I10 Essential (primary) hypertension; J45.909 Unspecified asthma, uncomplicated; Z79.01 Long term (current) use of anticoagulants